=== PATIENT | male | born 1965 | race Caucasian/White ===

== ENCOUNTER 2020-03-27 14:31 | Emergency (ER) | payer OTHER, SELFPAY ==
--- NOTE | ~2020-03-27 | XR_ITS ---
EXAMINATION: XR chest 2V EXAM DATE: 03/27/2020 15:57 INDICATION: Shortness of breath, fever and fatigue. TECHNIQUE: Frontal and lateral projections of the chest obtained and reviewed. Comparison is made to prior examination from 09/14/2019. FINDINGS: The lungs are clear. There are no pleural effusions. The cardiomediastinal silhouette is within normal limits. There is no pneumothorax suspected. There are mild bony degenerative changes. There are cholecystectomy clips. IMPRESSION: No acute cardiopulmonary findings. Reviewed, dictated and finalized at location A.
--- NOTE | ~2020-03-27 | CT_ITS ---
EXAMINATION: CT abdomen pelvis w con EXAM DATE: 03/27/2020 17:32 INDICATION: Fever and abdominal pain. TECHNIQUE: Spiral CT of the abdomen and pelvis was performed following intravenous injection of 100 m L Omnipaque 350. Axial, coronal and sagittal images were reviewed. The dose-length product (DLP) fo r this examination was 1577.76 mGy-cm. The exposure was tailored according to patient size (auto mA exposure control), and iterative reconstruction (ASIR) was used as additional dose reduction techniqu e. 02/21/2017 FINDINGS: The liver, spleen, adrenal glands and pancreas are unremarkable. There are cholecystectomy clips. Portal and splenic veins are patent. There is punctate left nephrolithiasis. Kidneys enhance symmetrically. There is no hydronephrosis. The prostate is unremarkable. The bladder is unremark able. There is no retroperitoneal or pelvic lymphadenopathy. Small left inguinal fat-containing he rnia. The appendix is not positively visualized. There is no pericecal inflammatory change to suggest appe ndicitis. The stomach and small bowel are unremarkable. There is expected amount of colonic stool. No free intraperitoneal gas. The heart is normal in size. There are no pericardial or pleural e ffusions. There is 3 x 4 mm right middle lobe noncalcified granuloma unchanged. There are no osteob lastic or osteolytic lesions identified. IMPRESSION: 1. No acute intra-abdominal findings. 2. Punctate left nephrolithiasis. Reviewed, dictated and finalized at location A.
[2020-03-27 14:35] VITALS: BP 173/110; PULSE 93; RESP 20; TEMP 38.1; O2SAT 96
--- NOTE | 2020-03-27 14:56 | ECG_ITS ---
Measurements Intervals [place] Rate: 92 P: 14 [place]: 162 QRS: -15 QRSD: 87 T: 23 QT: 340 QTc: 421 Interpretive Statements SINUS RHYTHM INFERIOR INFARCT, AGE INDETERMINATE BORDERLINE T WAVE ABNORMALITY- LATERAL LEADS ABNORMAL ECG Electronically Signed On 03-28-2020 9:26:16 CDT by Michael Aguirre D.O.
[2020-03-27 15:36] LABS: Basophils Percent Auto 0.4 % (0.2-1.2); Eosinophils Absolute Auto 0.1 K/mm3 (0-0.3); Eosinophils Percent Auto 2.3 % (0-4.4); Hematocrit 42.6 % (42.0-52.0); Hemoglobin 14.8 g/dL (14.0-18.0); Immature Granulocyte Absolute 0.03 K/mm3 (0.00-0.031); Immature Granulocyte Percent A 0.6 % (0-0.5); Lymphocytes Absolute Auto 1.05 K/mm3 (0.9-3.2); Mean Corpuscular HGB Conc 34.7 g/dl (32-36); Mean Corpuscular Hemoglobin 28.3 pg (26-34); Mean Corpuscular Volume 81.5 fl (80-100); Mean Platelet Volume 8.7 fl (7.4-10.4); Monocytes Absolute Auto 0.6 K/mm3 (0.1-0.6); Monocytes Percent Auto 11.8 % (2.6-8.5); Neutrophils Absolute Auto 3.4 K/mm3 (1.3-6.7); Neutrophils Percent Auto 64.9 % (45.5-73.1); Platelet Count Result 224 k/mm3 (150-375); Red Blood Count 5.23 M/mm3 (4.6-6.20); Red Cell Distribution Width 13.1 % (11.5-14.5); White Blood Count 5.3 K/mm3 (4.5-10.0)
[2020-03-27 15:52] LABS: Blood Urea Nitrogen 13 mg/dL (9-20); Calcium 8.8 mg/dL (8.4-10.2); Carbon Dioxide 24 mmol/L (22-30); Chloride 102 mmol/L (98-107); Estimated CRCL calculation 132 ml/min; Estimated Glomerular Filt Rate > 60; Glucose 108 mg/dL (75-110); Potassium 3.6 mmol/L (3.4-5.0); Sodium 134 mmol/L (137-145)
[2020-03-27 16:36] VITALS: BP 145/95; PULSE 76; RESP 18; O2SAT 20
--- NOTE | 2020-03-27 17:12 | ED.SOB ---
HPI - SOB/Dyspnea General Chief Complaint: Shortness of Breath/Dyspnea Stated Complaint: Multiple complaints Time Seen by Provider: 03/27/20 16:44 History of Present Illness HPI Narrative: 54 yo male w/ h/o DM, HTN, barrete's esophagus presents to the ED with multiple complaints. For the past week he has been feeling fatigued and SOB. initially only with exertion now all the time. He also reports that he has been exhausted and has trouble staying awake throughout the day. Additionally c/o of abdominal pain and distention. Associated with mild nausea. He was noted to be febrile during triage. He is supected of having sleep apnea. He has not had testing yet due to COVID-19 Related Data Home Medications Medication Instructions Recorded Confirmed aspirin 81 mg tablet,delayed 81 mg PO DAILY 09/12/19 release scopolamine base 1 mg over 3 days 1 patch TRANSDERM Q3D PRN 09/12/19 transdermal patch Allergies Allergy/AdvReac Type Severity Reaction Status Date / Time mold Allergy Mild Verified 10/13/19 10:37 Cultivated Oat Pollen Allergy Intermediate Uncoded 10/13/19 10:37 Review of Systems Review of Systems: All systems reviewed & are unremarkable except as noted in HPI and below Constitutional: Constitutional: Reports fatigue, Reports fever(s) and Reports weakness ENT: Denies sore throat Cardiovascular: Cardiovascular: Denies chest pain Respiratory: Respiratory: Reports cough and Reports dyspnea Gastrointestinal: Gastrointestinal: Reports abdominal pain and Reports nausea Genitourinary: Genitourinary: Denies dysuria Neurologic: Denies dizziness and Denies numbness PMF Past Medical History Medical History ADHD Back pain Barretts esophagus Benign essential hypertension Chest pain Diabetes mellitus GERD (gastroesophageal reflux disease) History of Dixon's esophagus Medical non-compliance Mixed hyperlipidemia Noncompliance Severe obesity (BMI >= 40) Sleep apnea Type 2 diabetes mellitus with hyperglycemia Urinary frequency Viral syndrome Family History Family History Grandparent Cerebrovascular accident Father Family history of dementia Social History Social History Smoking status: Never smoker Alcohol intake: never Gender identity (if verbalized by the patient): Male Exam Const: General: healthy appearing, no acute distress and alert Nutritional Appearance: obese Orientation/consciousness: patient oriented x3 HENMT: Head: normal to inspection Resp: Effort & Inspection: normal respiratory effort Auscultation: clear to auscultation bilaterally Cardio: Rate: regular rate Rhythm: regular rhythm GI: Inspection: distended GI Palp: Yes Tenderness to palpation present (GI) (LLQ) and No Guarding due to palpation present (GI) Skin: General skin exam: normal color Neuro: General: patient oriented x3, moves all extremities, no focal motor deficits and CN's II-XI intact bilaterally Speech: normal speech Extrem: General: normal to inspection Course Vital Signs Vital signs: Vital Signs Temperature 38.1 C H 03/27/20 14:35 Pulse Rate 93 03/27/20 14:35 Respiratory Rate 20 03/27/20 14:35 Blood Pressure 173/110 H 03/27/20 14:35 Pulse Oximetry 96 03/27/20 14:35 Temperature 37.6 C 03/27/20 18:15 Pulse Rate 87 03/27/20 18:15 Respiratory Rate 18 03/27/20 18:15 Blood Pressure 168/109 H 03/27/20 18:15 Pulse Oximetry 94 03/27/20 18:15 MDM - SOB/Dyspnea MDM Narrative Medical decision making narrative: He has multiple complaints and it is difficult to tie them into one diagnosis. I suspect that he has diverticulitis and sleep apnea. Medical Records Attestation: I reviewed the patient's medical records. Lab Data Attestation: I reviewed the patient's lab results. Result d
[2020-03-27 17:38] VITALS: BP 138/78; PULSE 78; RESP 16; O2SAT 99
[2020-03-27 18:15] VITALS: BP 168/109; PULSE 87; RESP 18; TEMP 37.6; O2SAT 94
[2020-03-27 18:21] LABS: Add Urine Microscopic? NO; Appearance Urine Clear (Clear); Bilirubin Urine Negative (Negative); Blood Urine Negative (Negative); Color Urine Yellow (Yellow); Glucose Urine UA Negative (Negative); Ketones Urine Negative (Negative); Leukocyte Esterase Ur Negative LEU/UL (Negative); Nitrate Urine Negative (Negative); Protein Urine Negative (Negative); Specific Grav Ur 1.019 (1.001-1.035); Urobilinogen Urine Negative mg/dL (<2.0)
[2020-03-28 13:36] LABS: SARS-CoV-2 RNA PCR Positive
== END 2020-03-27 19:14 | disposition home or self-care (01) ==
PROVIDERS: Emergency Medicine; Emergency Provider Emergency Medicine; PCP Family Medicine
DX: U07.1 COVID-19 (principal); R53.83 Other fatigue; R50.9 Fever, unspecified; I10 Essential (primary) hypertension; K22.70 Barrett's esophagus without dysplasia; K21.9 Gastro-esophageal reflux disease without esophagitis; Z68.41 Body mass index [BMI] 40.0-44.9, adult; E78.2 Mixed hyperlipidemia; E66.01 Morbid (severe) obesity due to excess calories; E11.65 Type 2 diabetes mellitus with hyperglycemia; Z79.82 Long term (current) use of aspirin; Z79.84 Long term (current) use of oral hypoglycemic drugs
CPT/HCPCS: 36415; 71046; 74177; 80048; 81003; 85025; 87635; 93005; 99284; C9803; Q9967; U0003

== ENCOUNTER 2020-04-01 23:48 | Inpatient (IN) | payer OTHER, SELFPAY ==
--- NOTE | ~2020-04-01 | XR_ITS ---
EXAMINATION: XR chest 1V portable EXAM DATE: 04/02/2020 00:22 INDICATION: Shortness of air. TECHNIQUE: Portable AP frontal chest x-ray was obtained. Comparison is made to prior examination from 03/27/2020. FINDINGS: There is approximately 4 cm region of airspace in the right upper lobe, and approximately 3 cm ill-defined opacity in the left mid to lower lung zone. These are new compared to examination fro m 03/27/2020. Most likely bilateral acute infectious process, recommend considering acute lung injury f rom COVID 19. The lungs are otherwise clear. There are no pleural effusions. The cardiomediastinal silhouette is within normal limits. There is no pneumothorax suspected. The bones and soft tissues are unremarkab le. IMPRESSION: Development of acute bilateral airspace disease most likely acute infectious process. I discussed this case with Erick El MD at 04/02/2020 0:27 CDT. Reviewed, dictated and finalized at location G. IMPRESSION: Development of acute bilateral airspace disease most likely acute i nfectious process. I discussed this case with Erick El MD at 04/02/2020 0:27 CDT.
--- NOTE | ~2020-04-01 | XR_ITS ---
EXAMINATION: XR chest 1V portable INDICATION: Shortness of breath and cough TECHNIQUE: Portable AP chest at 1219 hours COMPARISON: 04/04/2020 FINDINGS: Airspace opacities of the right upper and left mid and lower lung zones persist with slight worsening. There is no pleural effusion or pneumothorax. The cardiomediastinal silhouette is normal. IMPRESSION: 1. Worsening bilateral airspace opacities, consistent with multifocal pneumonia. Reviewed, dictated and finalized at location A. IMPRESSION: 1. Worsening bilateral airspace opacities, consistent with multifocal pneumonia .
--- NOTE | ~2020-04-01 | XR_ITS ---
XR chest 1V portable 04/04/2020 14:07 Indication: Shortness of breath Procedure: AP portable chest Comparison: Comparison to multiple prior studies sequentially, with oldest reviewed study dated 11/20. Findings: Interval progression of patchy bilateral airspace disease, compatible with multifocal pneum onia. No pleural effusion or pneumothorax. Impression: 1: Interval progression of multifocal pneumonia compared with 04/02/2020. Reviewed, dictated and finalized at location A. Impression: 1: Interval progression of multifocal pneumonia compared with 04/02/2020.
--- NOTE | ~2020-04-01 | XR_ITS ---
EXAMINATION: XR chest 1V portable DATE: 04/08/2020 05:45 INDICATION: Shortness of breath. Cough. COVID-19 pneumonia. TECHNIQUE: A single frontal view of the chest was obtained. COMPARISON: Chest single view 04/06/2020, CT abdomen and pelvis 03/27/2020 FINDINGS: There are patchy airspace opacities in all lung zones bilaterally with a peripheral and low er lung predominance. No pleural effusion or pneumothorax. The heart size is normal. IMPRESSION: 1. Worsened diffuse lung disease, consistent with pneumonia. Reviewed, dictated and finalized at location A.
[2020-04-02] VITALS (23 sets, daily range): BP systolic 118–159; BP diastolic 43–100; PULSE 87–110; RESP 18–25; TEMP 36.7–38.9; O2SAT 92–98; BMI 39.9
--- NOTE | 2020-04-02 00:15 | ECG_ITS ---
Measurements Intervals [place] Rate: 103 P: 21 [place]: 149 QRS: -14 QRSD: 87 T: 49 QT: 328 QTc: 430 Interpretive Statements SINUS TACHYCARDIA INFERIOR INFARCT, AGE INDETERMINATE ABNORMAL ECG Electronically Signed On 04-02-2020 7:08:30 CDT by Michael Aguirre D.O.
[2020-04-02] MEDS: SODIUM CHLORIDE 0.9% IV 1,000 ML 999 ML IV CONT (00:45)
[2020-04-02 01:00] LABS: Basophils Percent Auto 0.3 % (0.2-1.2); Eosinophils Percent Auto 0.3 % (0-4.4); Hematocrit 45.2 % (42.0-52.0); Hemoglobin 15.9 g/dL (14.0-18.0); Immature Granulocyte Absolute 0.05 K/mm3 (0.00-0.031); Immature Granulocyte Percent A 0.8 % (0-0.5); Lymphocytes Absolute Auto 1.47 K/mm3 (0.9-3.2); Lymphocytes Percent Auto 24.1 % (18.3-44.2); Mean Corpuscular HGB Conc 35.2 g/dl (32-36); Mean Corpuscular Hemoglobin 28.5 pg (26-34); Mean Platelet Volume 9.1 fl (7.4-10.4); Monocytes Absolute Auto 0.4 K/mm3 (0.1-0.6); Monocytes Percent Auto 6.7 % (2.6-8.5); Neutrophils Absolute Auto 4.1 K/mm3 (1.3-6.7); Neutrophils Percent Auto 67.8 % (45.5-73.1); Platelet Count Result 229 k/mm3 (150-375); Red Blood Count 5.58 M/mm3 (4.6-6.20); Red Cell Distribution Width 12.8 % (11.5-14.5); White Blood Count 6.1 K/mm3 (4.5-10.0)
[2020-04-02 01:01] LABS: Alanine Aminotransferase 50 U/L (4-50); Albumin Level 4.1 g/dL (3.5-5.1); Alkaline Phosphatase 92 U/L (38-126); Aspartate Amino Transferase 40 U/L (17-59); Bilirubin,Total 0.5 mg/dL (0.2-1.3); Blood Urea Nitrogen 15 mg/dL (9-20); Calcium 8.6 mg/dL (8.4-10.2); Carbon Dioxide 20 mmol/L (22-30); Chloride 98 mmol/L (98-107); Estimated Glomerular Filt Rate > 60; Glucose 285 mg/dL (75-110); Lactic Acid Reflex 2.7 mmol/L (0.7-2.1); Potassium 4.1 mmol/L (3.4-5.0); Sodium 130 mmol/L (137-145)
[2020-04-02 01:07] LABS: D Dimer 0.47 ug/mL (<0.48)
[2020-04-02] MEDS: ALBUTEROL SULFATE NEB 2.5 MG/0.5 ML INH 5 MG INHALATION (01:59)
[2020-04-02] MEDS: IPRATROPIUM BR 0.02% INH SOLN 0.5 MG/2.5 ML VIAL INHALATION (01:59)
--- NOTE | 2020-04-02 02:37 | ED.FEVER ---
HPI - Fever General Chief Complaint: Fever Stated Complaint: COVID 19 S/S Time Seen by Provider: 04/01/20 23:55 History of Present Illness HPI Narrative: Patient is a 54-year-old male who was referred here by his PCP. Patient was diagnosed with COVID-19 on 03/27/2020. Since then he developed increased shortness of breath with persistent fever. Reports he is feeling very anxious and since his shortness of breath is increasing he is concerned that he may . He is also concerned that his circulation is failing as his extremities have been cooler than typical. No chest pain or chest pressure. Unknown how he was exposed reports he is not taking social distancing seriously. Patient just started azithromycin as well as hydroxychloroquine today. Related Data Allergies Allergy/AdvReac Type Severity Reaction Status Date / Time mold Allergy Mild Verified 10/13/19 10:37 Cultivated Oat Pollen Allergy Intermediate Uncoded 10/13/19 10:37 Review of Systems Review of Systems: All systems reviewed & are unremarkable except as noted in HPI and below Constitutional: Constitutional: Denies chills, Reports fatigue and Reports fever(s) ENT: Denies nasal congestion and Denies sore throat Cardiovascular: Cardiovascular: Denies chest pain and Denies radiating jaw, neck or arm pain Respiratory: Respiratory: Reports cough, Reports dyspnea and Denies wheezing Gastrointestinal: Gastrointestinal: Denies abdominal pain, Denies nausea and Denies vomiting PMFSH Past Medical History Medical History (Updated 04/02/20 @ 07:06 by Erick El MD) ADHD Back pain Barretts esophagus Benign essential hypertension Chest pain COVID-19 virus detected Diabetes mellitus GERD (gastroesophageal reflux disease) History of Dixon's esophagus Medical non-compliance Mixed hyperlipidemia Noncompliance Severe obesity (BMI >= 40) Sleep apnea Type 2 diabetes mellitus with hyperglycemia Urinary frequency Viral syndrome Surgical History Surgical History (Updated 04/02/20 @ 07:05 by Erick El MD) History of appendectomy Social History Social History Smoking status: Never smoker Alcohol intake: never Substance use: never Gender identity (if verbalized by the patient): Male Spiritual care concerns: No Exam Narrative: Exam Narrative: GENERAL: Ill-appearing, well-nourished, and in no acute distress. HEAD: Normocephalic, atraumatic. ENT: Mucous membranes moist. NECK: Supple. CHEST: Clear to auscultation. No respiratory distress. HEART: Tachycardic and regular. Normal peripheral pulses. ABDOMEN: Soft, nontender, nondistended. EXTREMITIES: Normal range of motion. No edema. SKIN: Warm, dry, no rash. NEURO: Alert and oriented x3. 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 Hydrated. Received breathing treatments without improvement dyspnea. Oxygen saturation dipping down to 90% on room air with good [place]. Concern patient's lung disease is worsening and necessitates observation within the hospital. Vital Signs Vital signs: Vital Signs Temperature 100.3 F H 04/02/20 00:13 Pulse Rate 110 H 04/02/20 00:13 Respiratory Rate 22 H 04/02/20 00:13 Blood Pressure 154/98 H 04/02/20 00:13 Pulse Oximetry 98 04/02/20 00:13 Temperature 98.8 F 04/02/20 06:00 Pulse Rate 87 04/02/20 06:00 Respiratory Rate 20 04/02/20 06:00 Blood Pressure 147/76 H 04/02/20 06:00 Pulse Oximetry 92 04/02/20 06:00 MDM - Fever Lab Data Result diagrams: 04/02/20 00:33 04/02/20 00:33 Labs: Lab Results 04/02/20 04/02/20 04/02/20 Range/Units 00:33 00:33 00:33 WBC 6.1 (4.5-10.0) K/mm3 RBC 5.58 (4.6-6.20) M/mm3 Hgb 15.9 (14.0-18.0) g/dL Hct 45.2 (42.0-52.0) % MCV 81.0 (80-100) fl MCH 28.5 (26-34) pg MCHC 35.2 (32-36) g/dl RDW 12.8 (11.5-14.5) % P
[2020-04-02 03:36] LABS: Reflex Lactic Acid Yes or No Add Lactic
--- NOTE | 2020-04-02 03:50 | ADMGEN ---
This patient, Rich Reid, was admitted to [facility] Surg Room 329-01. Patient/family oriented to hospital policies and general routines including ID bracelet, bed and alarms, visiting hours, pain management, procedures, bathroom and other care routines, personal items, smoking policy, room service/diet, and visiting hours. Valuables list has been completed. Information on how to activate the Rapid Response Team has been discussed. Patient/Family are encouraged to report perceived risks to care and to ask questions if they do not understand what they are told or what they should do.
[2020-04-02 04:28] LABS: Lactic Acid 2.1 mmol/L (0.7-2.1)
[2020-04-02 08:46] LABS: Glucose Point of Care 163 (65-105)
--- NOTE | 2020-04-02 09:40 | PM.IMHP ---
H&P: HPI History of Present Illness Chief complaint: covid, soa Narrative: Date of admission: 04/02/2020 Date of service: 04/02/2020 Rich Reid is a 54 year old male with a past medical history significant for type 2 diabetes, Dixon's esophagus, obesity, and hypertension who presented to the emergency department on 04/02/2020 complaints shortness of breath, fatigue, and ?poor circulation in his hands and feet. The numbness and tingling in his hands and feet were extremely distressing to him and he was concerned that he was going to , therefore he came to the emergency department. He previously had been seen in the emergency department on 03/27/2020 and tested positive for COVID-19. On 03/28/2020 he obtained a repeat COVID test at [facility] because he was concerned that the initial test may have been a false positive. Both tests were positive. He reported that he had not been taking social distancing or hygiene precautions seriously as he thought the media was dramatizing COVID-19. Upon testing positive, he did begin self-quarantine at home with his and his daughter who has separate living quarters upstairs. Yesterday, his symptoms began to become more bothersome. In addition to his shortness of breath and fatigue, he noted a dry cough and fever with a T-max of 102.0?. He also complained of nausea and abdominal pain but denied vomiting. He believes that his nausea may be related to dietary changes, as he recently began drinking large amounts of Cheko seeds for the past 4 days in attempt to curb his appetite. Given his increased shortness of breath, he called his primary care doctor yesterday who prescribed hydroxychloroquine and azithromycin. He began those medications yesterday. Today, he feels that his breathing has improved somewhat. He is able to lie flat as well as ambulate around the room without increased shortness of breath. He still feels anxious regarding his symptoms. He has been febrile with a T-max of 101.5? this morning. He complains of generalized body aches. He denies chills. His chest x-ray demonstrated acute bilateral airspace disease with new infiltrates not previously noted on prior CXR on 03/27/20. Review of Systems Review of Systems: Narrative: A 12 point review of systems was reviewed with pertinent positives and negatives as per HPI. He denies dizziness, lightheadedness, palpitations, headaches, dysuria, urgency, or frequency. His last bowel movement was yesterday. He reports his bowel movements are regular, soft, and formed. His appetite has been good. He endorses snoring at night and feeling tired during the day. He has been scheduled to obtain a sleep study, however has been unable to do so as of now. [facility] Past Medical History Medical History (Updated 04/02/20 @ 10:18 by Darlene Juarez PA-C) ADHD Back pain Barretts esophagus Benign essential hypertension Chest pain COVID-19 virus detected GERD (gastroesophageal reflux disease) Medical non-compliance Mixed hyperlipidemia Severe obesity (BMI >= 40) Sleep apnea Type 2 diabetes mellitus with hyperglycemia Urinary frequency Surgical History Surgical History (Updated 04/02/20 @ 09:54 by Darlene Juarez PA-C) History of appendectomy History of cholecystectomy History of right knee surgery History of shoulder surgery Bilateral Family History Family History (Updated 04/02/20 @ 09:54 by Darlene Juarez PA-C) Grandparent Cerebrovascular accident Father Family history of dementia Acute myocardial infarction Mother No problems noted. Social History Social History (Updated 04/02/20 @ 09:56 by Darlene Juarez PA-C) Social History: Mr. Reid lives at home with his and his 2 adult children. 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 He would like to be a full code and designates his Melonie ([phone]) as his surrogate decision maker. Smoking status: Never smoker Alcohol intake: former Alcoho
[2020-04-02 10:11] LABS: CRP 5.7 mg/dL (<1.0)
[2020-04-02 10:44] LABS: Creatine Kinase 129 U/L (55-170); Lactate Dehydrogenase 477 U/L (313-618)
[2020-04-02] MEDS: lisinopriL 20 MG TABLET 40 MG PO (11:12)
[2020-04-02] MEDS: ENOXAPARIN 40 MG/0.4 ML SYRINGE SUB-Q (11:13)
[2020-04-02] MEDS: PANTOPRAZOLE 40 MG TABLET PO ×2 (11:14→21:51)
[2020-04-02] MEDS: ACETAMINOPHEN 325 MG TABLET 650 MG PO ×3 (11:14→21:51)
[2020-04-02] MEDS: ALBUTEROL SULFATE (*SP) INHALER 2 PUFF INHALATION ×3 (11:46→19:40)
[2020-04-02 12:41] LABS: Glucose Point of Care 255 (65-105)
[2020-04-02] MEDS: INSULIN ASPART (*BKC) 100 UNITS/ML SUB-Q (13:38)
[2020-04-02] MEDS: metFORMIN HCL XR 500 MG TAB.SR.24H 1000 MG PO (16:35)
[2020-04-02 17:49] LABS: Glucose Point of Care 194 (65-105)
[2020-04-02 22:44] LABS: Glucose Point of Care 246 (65-105)
[2020-04-03] VITALS (16 sets, daily range): BP systolic 126–183; BP diastolic 58–98; PULSE 77–107; RESP 16–24; TEMP 37.2–39; O2SAT 90–99; BMI 39.9
[2020-04-03] MEDS: ACETAMINOPHEN 325 MG TABLET 650 MG PO ×2 (05:19→09:27)
[2020-04-03 06:41] LABS: Basophils Percent Auto 0.4 % (0.2-1.2); Eosinophils Percent Auto 0.4 % (0-4.4); Hematocrit 42.9 % (42.0-52.0); Hemoglobin 14.8 g/dL (14.0-18.0); Immature Granulocyte Absolute 0.03 K/mm3 (0.00-0.031); Immature Granulocyte Percent A 0.5 % (0-0.5); Lymphocytes Absolute Auto 1.31 K/mm3 (0.9-3.2); Lymphocytes Percent Auto 23.1 % (18.3-44.2); Mean Corpuscular HGB Conc 34.5 g/dl (32-36); Mean Corpuscular Hemoglobin 28.1 pg (26-34); Mean Corpuscular Volume 81.4 fl (80-100); Mean Platelet Volume 8.8 fl (7.4-10.4); Monocytes Absolute Auto 0.3 K/mm3 (0.1-0.6); Monocytes Percent Auto 5.3 % (2.6-8.5); Neutrophils Percent Auto 70.3 % (45.5-73.1); Platelet Count Result 211 k/mm3 (150-375); Red Blood Count 5.27 M/mm3 (4.6-6.20); White Blood Count 5.7 K/mm3 (4.5-10.0)
[2020-04-03 06:56] LABS: Lactic Acid 1.2 mmol/L (0.7-2.1)
[2020-04-03 07:00] LABS: Alanine Aminotransferase 46 U/L (4-50); Albumin Level 3.8 g/dL (3.5-5.1); Alkaline Phosphatase 87 U/L (38-126); Aspartate Amino Transferase 36 U/L (17-59); Bilirubin,Total 0.6 mg/dL (0.2-1.3); Blood Urea Nitrogen 12 mg/dL (9-20); CRP 6.8 mg/dL (<1.0); Calcium 8.5 mg/dL (8.4-10.2); Carbon Dioxide 24 mmol/L (22-30); Chloride 99 mmol/L (98-107); Estimated CRCL calculation 129 ml/min; Estimated Glomerular Filt Rate > 60; Glucose 191 mg/dL (75-110); Potassium 4.1 mmol/L (3.4-5.0); Sodium 129 mmol/L (137-145)
[2020-04-03 07:22] LABS: Hemoglobin A1C 9.7 % (<5.7)
[2020-04-03 08:37] LABS: Glucose Point of Care 160 (65-105)
[2020-04-03] MEDS: ALBUTEROL SULFATE (*SP) INHALER 2 PUFF INHALATION ×4 (09:10→20:51)
--- NOTE | 2020-04-03 09:13 | P.PNIM_ITS ---
Progress Note: A&P Assessment and Plan (1) COVID-19: Code(s): U07.1 - COVID-19 Status: Acute Assessment and Plan: Patient tested positive for COVID-19 on 03/27/2020. He was initiated on azithromycin and hydroxychloroquine on 04/01/2020 by PCP. His chest x-ray reveals bilateral airspace disease consistent with infectious process with new infiltrates compared to CXR on 03/27/20. He was febrile overnight with T max 102.1 that has improved with tylenol. He is maintaining adequate oxygenation on room air. * Continue isolation precautions * Continue ceftriaxone and azithromycin * Hydroxychloroquine discontinued on 04/02/20 * Continue supplemental O2 as needed with goal saturation >92% * Continue supportive care with prn albuterol inhaler, prn acetaminophen for fever, and guaifenisin * Trend CRP and acute phase reactants (2) Pneumonia: Code(s): J18.9 - Pneumonia, unspecified organism Status: Acute Assessment and Plan: CXR has new infiltrates compared to prior X-ray on 03/27/20. This may be secondary bacterial infection following viral respiratory disease. * Continue ceftriaxone and azithromycin * Sputum culture was not performed as sample was unacceptable for culture. Will attempt collection again. * Blood cultures are pending * Urinary pneumococcal and legionella antigens are pending * Supportive care as above (3) Sepsis: Code(s): A41.9 - Sepsis, unspecified organism Status: Acute Assessment and Plan: Patient meets criteria for sepsis based on fever and tachycardia with suspected source of infection being pulmonary infection, possibly viral due to covid but may be secondary bacterial infection. No leukocytosis. Lactic was initially elevated at 2.7 but is now WNL. 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 Updated hemoglobin A1c is 9.7. His metformin was recently increased by PCP. His blood sugars are somewhat elevated. * Continue Accu-Cheks ACHS, high dose sliding scale, and hypoglycemia protocol * Will add 20 U Lantus HS * Continue metformin * Patient requests evaluation from engineering document control clerk and CDE, which will be via phone given he is Covid positive. (5) Benign essential hypertension: Code(s): I10 - Essential (primary) hypertension Status: Acute Assessment and Plan: Initial readings were elevated, but have shown improvement. Blood pressure is evaluated today and elevated at 136/98 prior to administration of antihypertensive. * Continue lisinopril * Continue to monitor blood pressure closely Subjective Date/time seen: 04/03/20 09:13 Interval history: Date of service: 04/03/2020 He reports he is feeling about the same today. He complains of nonproductive cough. He denies shortness of breath or dyspnea on exertion. He endorses subjective fever and chills, occasionally with diaphoresis. He denies chest p ain. He had a loose stool yesterday evening. He is urinating without difficulty and denies dysuria or hematuria. He denies dizziness or lightheadedness. He denies anxiety. His appetite has been good. He requests to see the dietitian
--- NOTE | 2020-04-03 09:13 | PM.IMPN ---
Progress Note: A&P Assessment and Plan (1) COVID-19: Code(s): U07.1 - COVID-19 Status: Acute Assessment and Plan: Patient tested positive for COVID-19 on 03/27/2020. He was initiated on azithromycin and hydroxychloroquine on 04/01/2020 by PCP. His chest x-ray reveals bilateral airspace disease consistent with infectious process with new infiltrates compared to CXR on 03/27/20. He was febrile overnight with T max 102.1 that has improved with tylenol. He is maintaining adequate oxygenation on room air. Continue isolation precautions Continue ceftriaxone and azithromycin Hydroxychloroquine discontinued on 04/02/20 Continue supplemental O2 as needed with goal saturation >92% Continue supportive care with prn albuterol inhaler, prn acetaminophen for fever, and guaifenisin Trend CRP and acute phase reactants (2) Pneumonia: Code(s): J18.9 - Pneumonia, unspecified organism Status: Acute Assessment and Plan: CXR has new infiltrates compared to prior X-ray on 03/27/20. This may be secondary bacterial infection following viral respiratory disease. Continue ceftriaxone and azithromycin Sputum culture was not performed as sample was unacceptable for culture. Will attempt collection again. Blood cultures are pending Urinary pneumococcal and legionella antigens are pending Supportive care as above (3) Sepsis: Code(s): A41.9 - Sepsis, unspecified organism Status: Acute Assessment and Plan: Patient meets criteria for sepsis based on fever and tachycardia with suspected source of infection being pulmonary infection, possibly viral due to covid but may be secondary bacterial infection. No leukocytosis. Lactic was initially elevated at 2.7 but is now WNL. Continue to monitor vitals and labs closely Blood cultures are pending (4) Type 2 diabetes mellitus with hyperglycemia: Qualifiers: Diabetes mellitus manager intermediate insulin use: without manager intermediate use Qualified Code(s): E11.65 - Type 2 diabetes mellitus with hyperglycemia Code(s): E11.65 - Type 2 diabetes mellitus with hyperglycemia Status: Acute Assessment and Plan: Patient reports noncompliance with medication as well as poor diet and lifestyle choices. Updated hemoglobin A1c is 9.7. His metformin was recently increased by PCP. His blood sugars are somewhat elevated. Continue Accu-Cheks ACHS, high dose sliding scale, and hypoglycemia protocol Will add 20 U Lantus HS Continue metformin Patient requests evaluation from paper bag machine operator and CDE, which will be via phone given he is Covid positive. (5) Benign essential hypertension: Code(s): I10 - Essential (primary) hypertension Status: Acute Assessment and Plan: Initial readings were elevated, but have shown improvement. Blood pressure is evaluated today and elevated at 136/98 prior to administration of antihypertensive. Continue lisinopril Continue to monitor blood pressure closely Subjective Date/time seen: 04/03/20 09:13 Interval history: Date of service: 04/03/2020 He reports he is feeling about the same today. He complains of nonproductive cough. He denies shortness of breath or dyspnea on exertion. He endorses subjective fever and chills, occasionally with diaphoresis. He denies chest pain. He had a loose stool yesterday evening. He is urinating without difficulty and denies dysuria or hematuria. He denies dizziness or lightheadedness. He denies anxiety. His appetite has been good. He requests to see the dietitian and director of community education. He slept well last night. He requests I call his to update her on his condition. Review of Systems Review of Systems: Narrative: A 12 point review of systems was reviewed with pertinent positives and negatives per HPI. Exam Narrative: Exam Narrative: Mr. Reid is examined alone today. He is an obese 54-year-old male who is lying supine in bed
[2020-04-03] MEDS: lisinopriL 20 MG TABLET 40 MG PO (09:24)
[2020-04-03] MEDS: metFORMIN HCL XR 500 MG TAB.SR.24H 1000 MG PO ×2 (09:24→16:39)
[2020-04-03] MEDS: PANTOPRAZOLE 40 MG TABLET PO ×2 (09:24→21:14)
[2020-04-03] MEDS: ENOXAPARIN 40 MG/0.4 ML SYRINGE SUB-Q (09:25)
--- NOTE | 2020-04-03 12:23 | PCDIET ---
Dietitian Consult for weight loss/Diabetic Diet. See Nutritional Teaching. Thank you for the consult.
[2020-04-03 12:53] LABS: Glucose Point of Care 265 (65-105)
[2020-04-03] MEDS: INSULIN ASPART (*BKC) 100 UNITS/ML SUB-Q (12:59)
--- NOTE | 2020-04-03 13:09 | PC.NURSE ---
[place]alia, agricultural extension educator, asked me to take material to 329. I did. Later, I asked the patient if he had a chance to read any of the book. He state, No, I'm not going to do that. I'm too lazy for that. I encouraged him to read it as it would help him better manage all of his diseases.
[2020-04-03 17:07] LABS: Glucose Point of Care 168 (65-105)
[2020-04-03] MEDS: INSULIN GLARGINE (*BKC) 100 UNITS/ML 20 UNITS SUB-Q (21:21)
[2020-04-04] VITALS (14 sets, daily range): BP systolic 124–171; BP diastolic 75–90; PULSE 84–109; RESP 20–22; TEMP 37.1–39.3; O2SAT 88–99
[2020-04-04 05:24] LABS: Glucose Point of Care 203 (65-105)
[2020-04-04] MEDS: GUAIFENESIN/DEXTROMETHORPHAN 10 ML UDC 5 ML PO (05:24)
[2020-04-04 06:10] LABS: Basophils Percent Auto 0.2 % (0.2-1.2); Eosinophils Percent Auto 0.2 % (0-4.4); Hematocrit 41.2 % (42.0-52.0); Hemoglobin 14.2 g/dL (14.0-18.0); Immature Granulocyte Absolute 0.02 K/mm3 (0.00-0.031); Immature Granulocyte Percent A 0.4 % (0-0.5); Lymphocytes Absolute Auto 0.98 K/mm3 (0.9-3.2); Lymphocytes Percent Auto 18.7 % (18.3-44.2); Mean Corpuscular HGB Conc 34.5 g/dl (32-36); Mean Corpuscular Hemoglobin 28.2 pg (26-34); Mean Corpuscular Volume 81.7 fl (80-100); Mean Platelet Volume 8.8 fl (7.4-10.4); Monocytes Absolute Auto 0.3 K/mm3 (0.1-0.6); Neutrophils Percent Auto 75.5 % (45.5-73.1); Platelet Count Result 216 k/mm3 (150-375); Red Blood Count 5.04 M/mm3 (4.6-6.20); Red Cell Distribution Width 12.8 % (11.5-14.5); White Blood Count 5.2 K/mm3 (4.5-10.0)
[2020-04-04 06:41] LABS: Alanine Aminotransferase 39 U/L (4-50); Albumin Level 3.7 g/dL (3.5-5.1); Alkaline Phosphatase 78 U/L (38-126); Aspartate Amino Transferase 37 U/L (17-59); Bilirubin,Total 0.6 mg/dL (0.2-1.3); Blood Urea Nitrogen 12 mg/dL (9-20); Calcium 8.4 mg/dL (8.4-10.2); Carbon Dioxide 23 mmol/L (22-30); Chloride 98 mmol/L (98-107); Creatine Kinase 149 U/L (55-170); Estimated CRCL calculation 129 ml/min; Estimated Glomerular Filt Rate > 60; Glucose 172 mg/dL (75-110); Lactate Dehydrogenase 623 U/L (313-618); Potassium 4.1 mmol/L (3.4-5.0); Sodium 129 mmol/L (137-145)
[2020-04-04] MEDS: ONDANSETRON INJ 4 MG/2 ML VIAL IV PUSH (07:03)
[2020-04-04 07:41] LABS: CRP 14.7 mg/dL (<1.0)
[2020-04-04] MEDS: ALBUTEROL SULFATE (*SP) INHALER 2 PUFF INHALATION ×4 (08:22→20:25)
[2020-04-04] MEDS: AMLODIPINE BESYLATE 5 MG TABLET PO (08:37)
[2020-04-04] MEDS: ENOXAPARIN 40 MG/0.4 ML SYRINGE SUB-Q (08:37)
[2020-04-04] MEDS: lisinopriL 20 MG TABLET 40 MG PO (08:38)
[2020-04-04] MEDS: metFORMIN HCL XR 500 MG TAB.SR.24H 1000 MG PO ×2 (08:38→18:31)
[2020-04-04] MEDS: PANTOPRAZOLE 40 MG TABLET PO ×2 (08:41→21:30)
[2020-04-04 08:46] LABS: Glucose Point of Care 159 (65-105)
--- NOTE | 2020-04-04 09:30 | P.PNIM_ITS ---
Progress Note: A&P Assessment and Plan (1) COVID-19: Code(s): U07.1 - COVID-19 Status: Acute Assessment and Plan: Patient tested positive for COVID-19 on 03/27/2020. He was initiated on azithromycin and hydroxychloroquine on 04/01/2020 by PCP. His chest x-ray reveals bilateral airspace disease consistent with infectious process with new infiltrates compared to CXR on 03/27/20. He has been febrile, most recently with fevers overnight with T-max 102.2?. He has been fever free this morning. He had an episode of shortness of breath this morning in which he was placed on 2 L O2. Oxygen saturation now stable. * Continue isolation precautions * Repeat CXR * Continue ceftriaxone and azithromycin * Hydroxychloroquine discontinued on 04/02/20. * Continue supplemental O2 as needed with goal saturation >92%. Wean to goal. * Continue supportive care with prn albuterol inhaler, prn acetaminophen for fever, and guaifenisin. Add Cornet device. * Trend CRP and acute phase reactants (2) Pneumonia: Code(s): J18.9 - Pneumonia, unspecified organism Status: Acute Assessment and Plan: CXR has new infiltrates compared to prior X-ray on 03/27/20. This may be secondary bacterial infection following viral respiratory disease. * Continue ceftriaxone and azithromycin * Sputum culture was not performed as sample was unacceptable for culture. Will attempt collection again. * Preliminary blood cultures reveal NGTD. Await final cultures * Urinary pneumococcal and legionella antigens are pending * Supportive care as above (3) Sepsis: Code(s): A41.9 - Sepsis, unspecified organism Status: Acute Assessment and Plan: Patient meets criteria for sepsis based on fever and tachycardia with suspected source of infection being pulmonary infection, possibly viral due to covid but may be secondary bacterial infection. No leukocytosis. Lactic was initially elevated at 2.7 but is now WNL. * Continue to monitor vitals and labs closely * Blood cultures with NGTD. Await final (4) Type 2 diabetes mellitus with hyperglycemia: Qualifiers: Diabetes mellitus care home insulin use: without field service supervisor use Qualified Code(s): E11.65 - Type 2 diabetes mellitus with hyperglycemia Code(s): E11.65 - Type 2 diabetes mellitus with hyperglycemia Status: Acute Assessment and Plan: Patient reports noncompliance with medication as well as poor diet and lifestyle choices. Updated hemoglobin A1c is 9.7. His metformin was recently increased by PCP. Blood sugars have ranged from approximately 150-250. Blood sugar was reviewed today and is stable at 159. * Continue Accu-Cheks ACHS, high dose sliding scale, and hypoglycemia protocol * Continue metformin and Lantus * Patient requests evaluation from tax examining technician and CDE, which will be via phone given he is Covid positive. He may benefit from outpatient Diabetes Education. (5) Benign essential hypertension: Code(s): I10 - Essential (primary) hypertension Status: Acute Assessment and Plan: Initial readings were elevated, but have shown improvement. Blood pressures were elevated yesterday and today blood pressure is 171/84. * Continue lisinopril * Will add amlodipine to achieve better blood pressure control. * Continue to monitor blood pressure closely. * Will consider addition of p.r.n. hydralazine if blood pressures remain uncontrolled. (6) Anxiety: Code(s): F41.9 - Anxiety disorder, unspecified Status: Acute Assessment and Plan: Patient repo
--- NOTE | 2020-04-04 09:30 | PM.IMPN ---
Progress Note: A&P Assessment and Plan (1) COVID-19: Code(s): U07.1 - COVID-19 Status: Acute Assessment and Plan: Patient tested positive for COVID-19 on 03/27/2020. He was initiated on azithromycin and hydroxychloroquine on 04/01/2020 by PCP. His chest x-ray reveals bilateral airspace disease consistent with infectious process with new infiltrates compared to CXR on 03/27/20. He has been febrile, most recently with fevers overnight with T-max 102.2?. He has been fever free this morning. He had an episode of shortness of breath this morning in which he was placed on 2 L O2. Oxygen saturation now stable. Continue isolation precautions Repeat CXR Continue ceftriaxone and azithromycin Hydroxychloroquine discontinued on 04/02/20. Continue supplemental O2 as needed with goal saturation >92%. Wean to goal. Continue supportive care with prn albuterol inhaler, prn acetaminophen for fever, and guaifenisin. Add Cornet device. Trend CRP and acute phase reactants (2) Pneumonia: Code(s): J18.9 - Pneumonia, unspecified organism Status: Acute Assessment and Plan: CXR has new infiltrates compared to prior X-ray on 03/27/20. This may be secondary bacterial infection following viral respiratory disease. Continue ceftriaxone and azithromycin Sputum culture was not performed as sample was unacceptable for culture. Will attempt collection again. Preliminary blood cultures reveal NGTD. Await final cultures Urinary pneumococcal and legionella antigens are pending Supportive care as above (3) Sepsis: Code(s): A41.9 - Sepsis, unspecified organism Status: Acute Assessment and Plan: Patient meets criteria for sepsis based on fever and tachycardia with suspected source of infection being pulmonary infection, possibly viral due to covid but may be secondary bacterial infection. No leukocytosis. Lactic was initially elevated at 2.7 but is now WNL. Continue to monitor vitals and labs closely Blood cultures with NGTD. Await final (4) Type 2 diabetes mellitus with hyperglycemia: Qualifiers: Diabetes mellitus retirement insulin use: without supervisor intermediates use Qualified Code(s): E11.65 - Type 2 diabetes mellitus with hyperglycemia Code(s): E11.65 - Type 2 diabetes mellitus with hyperglycemia Status: Acute Assessment and Plan: Patient reports noncompliance with medication as well as poor diet and lifestyle choices. Updated hemoglobin A1c is 9.7. His metformin was recently increased by PCP. Blood sugars have ranged from approximately 150-250. Blood sugar was reviewed today and is stable at 159. Continue Accu-Cheks ACHS, high dose sliding scale, and hypoglycemia protocol Continue metformin and Lantus Patient requests evaluation from lining finisher and CDE, which will be via phone given he is Covid positive. He may benefit from outpatient Diabetes Education. (5) Benign essential hypertension: Code(s): I10 - Essential (primary) hypertension Status: Acute Assessment and Plan: Initial readings were elevated, but have shown improvement. Blood pressures were elevated yesterday and today blood pressure is 171/84. Continue lisinopril Will add amlodipine to achieve better blood pressure control. Continue to monitor blood pressure closely. Will consider addition of p.r.n. hydralazine if blood pressures remain uncontrolled. (6) Anxiety: Code(s): F41.9 - Anxiety disorder, unspecified Status: Acute Assessment and Plan: Patient reports he is anxious about being in the hospital and being away from his family. He is fearful that he is going to . Begin prn ativan Subjective Date/time seen: 04/04/20 09:30 Interval history: Date of service: 04/04/2020 He is feeling very concerned today. He stated several times that he thinks that he is going to . He had an episode this morning in which he became short
[2020-04-04 12:35] LABS: Glucose Point of Care 215 (65-105)
[2020-04-04] MEDS: INSULIN ASPART (*BKC) 100 UNITS/ML SUB-Q (12:36)
[2020-04-04 13:43] LABS: Pneumococcal Antigen Urine Not Detected (Not Detected)
[2020-04-04] MEDS: ACETAMINOPHEN 325 MG TABLET 650 MG PO ×2 (15:36→20:05)
[2020-04-04 18:31] LABS: Glucose Point of Care 133 (65-105)
[2020-04-04] MEDS: INSULIN GLARGINE (*BKC) 100 UNITS/ML 20 UNITS SUB-Q (20:05)
[2020-04-04 22:53] LABS: Glucose Point of Care 147 (65-105)
[2020-04-05] VITALS (12 sets, daily range): BP systolic 121–147; BP diastolic 64–78; PULSE 64–100; RESP 18–22; TEMP 37.2–38.1; O2SAT 92–97
[2020-04-05] MEDS: ACETAMINOPHEN 325 MG TABLET 650 MG PO ×3 (03:39→18:00)
[2020-04-05] MEDS: ALBUTEROL SULFATE (*SP) INHALER 2 PUFF INHALATION ×4 (09:11→20:29)
[2020-04-05] MEDS: PANTOPRAZOLE 40 MG TABLET PO ×2 (09:28→20:17)
[2020-04-05] MEDS: AMLODIPINE BESYLATE 5 MG TABLET PO (09:28)
[2020-04-05] MEDS: metFORMIN HCL XR 500 MG TAB.SR.24H 1000 MG PO ×2 (09:28→17:59)
[2020-04-05] MEDS: lisinopriL 20 MG TABLET 40 MG PO (09:28)
[2020-04-05] MEDS: ENOXAPARIN 40 MG/0.4 ML SYRINGE SUB-Q (09:29)
--- NOTE | 2020-04-05 10:08 | P.PNIM_ITS ---
Progress Note: A&P Assessment and Plan (1) COVID-19: Code(s): U07.1 - COVID-19 Status: Acute Assessment and Plan: Patient tested positive for COVID-19 on 03/27/2020. He was initiated on azithromycin and hydroxychloroquine on 04/01/2020 by PCP. His chest x-ray reveals bilateral airspace disease consistent with infectious process with new infiltrates compared to CXR on 03/27/20. He has been febrile with Tmax 102.8. He is maintaining adequate oxygen saturation on 2L O2. * Continue isolation precautions * Continue ceftriaxone and azithromycin * Hydroxychloroquine discontinued on 04/02/20. Patient is firmly requesting hydroxychloroquine. I had a brief discussion with patients PCP via phone today who also firmly recommends hydroxychloroquine. However, given patients QTc of 430 and potential risk for cardiac adverse event, I believe risks outweigh benefits at this time. * Continue supplemental O2 as needed with goal saturation >92%. Wean to goal. * Continue supportive care with albuterol inhaler, guaifenisin, cornet, and acetaminophen as needed for fever * Continue to trend CRP and acute phase reactants (2) Pneumonia: Code(s): J18.9 - Pneumonia, unspecified organism Status: Acute Assessment and Plan: CXR has new infiltrates compared to prior X-ray on 03/27/20. This may be secondary bacterial infection following viral respiratory disease. * Continue ceftriaxone and azithromycin * Sputum culture was not performed as sample was unacceptable for culture. Will attempt collection again. * Preliminary blood cultures reveal NGTD. Await final cultures * Urine pneumococcal antigen was not detected and legionella antigen is pending * MRSA culture is pending * Supportive care as above (3) Sepsis: Code(s): A41.9 - Sepsis, unspecified organism Status: Acute Assessment and Plan: Patient met criteria for sepsis based on fever and tachycardia with suspected source of infection being pulmonary infection, possibly viral due to covid but may be secondary bacterial infection. No leukocytosis. Lactic was initially elevated at 2.7 but is now WNL. * Continue to monitor vitals and labs closely * Blood cultures with NGTD. Await final (4) Type 2 diabetes mellitus with hyperglycemia: Qualifiers: Diabetes mellitus [place] [facility] insulin use: without [place] [facility] use Qualified Code(s): E11.65 - Type 2 diabetes mellitus with hyperglycemia Code(s): E11.65 - Type 2 diabetes mellitus with hyperglycemia Status: Acute Assessment and Plan: Patient reports noncompliance with medication as well as poor diet and lifestyle choices. Updated hemoglobin A1c is 9.7. His metformin was recently increased by PCP. Blood sugars have ranged from approximately 150-250. Blood sugar was reviewed today and is stable at 147. * Continue Accu-Cheks ACHS, high dose sliding scale, and hypoglycemia protocol * Continue metformin and Lantus * Patient requests evaluation from aircraft engine assembler and CDE, which will be via phone given he is Covid positive. He may benefit from outpatient Diabetes Education. (5) Benign essential hypertension: Code(s): I10 - Essential (primary) hypertension Status: Acute Assessment and Plan: Blood pressures have been elevated during his stay but appear to be improving with additional agent. Blood pressure is 121/78 today * Continue lisinopril and amlodipine. * Continue to monitor blood pressure closely. (6) Anxiety: Code(s): F41.9 - Anxiety disorder, unspecified Status: Acute
--- NOTE | 2020-04-05 10:08 | PM.IMPN ---
Progress Note: A&P Assessment and Plan (1) COVID-19: Code(s): U07.1 - COVID-19 Status: Acute Assessment and Plan: Patient tested positive for COVID-19 on 03/27/2020. He was initiated on azithromycin and hydroxychloroquine on 04/01/2020 by PCP. His chest x-ray reveals bilateral airspace disease consistent with infectious process with new infiltrates compared to CXR on 03/27/20. He has been febrile with Tmax 102.8. He is maintaining adequate oxygen saturation on 2L O2. Continue isolation precautions Continue ceftriaxone and azithromycin Hydroxychloroquine discontinued on 04/02/20. Patient is firmly requesting hydroxychloroquine. I had a brief discussion with patients PCP via phone today who also firmly recommends hydroxychloroquine. However, given patients QTc of 430 and potential risk for cardiac adverse event, I believe risks outweigh benefits at this time. Continue supplemental O2 as needed with goal saturation >92%. Wean to goal. Continue supportive care with albuterol inhaler, guaifenisin, cornet, and acetaminophen as needed for fever Continue to trend CRP and acute phase reactants (2) Pneumonia: Code(s): J18.9 - Pneumonia, unspecified organism Status: Acute Assessment and Plan: CXR has new infiltrates compared to prior X-ray on 03/27/20. This may be secondary bacterial infection following viral respiratory disease. Continue ceftriaxone and azithromycin Sputum culture was not performed as sample was unacceptable for culture. Will attempt collection again. Preliminary blood cultures reveal NGTD. Await final cultures Urine pneumococcal antigen was not detected and legionella antigen is pending MRSA culture is pending Supportive care as above (3) Sepsis: Code(s): A41.9 - Sepsis, unspecified organism Status: Acute Assessment and Plan: Patient met criteria for sepsis based on fever and tachycardia with suspected source of infection being pulmonary infection, possibly viral due to covid but may be secondary bacterial infection. No leukocytosis. Lactic was initially elevated at 2.7 but is now WNL. Continue to monitor vitals and labs closely Blood cultures with NGTD. Await final (4) Type 2 diabetes mellitus with hyperglycemia: Qualifiers: Diabetes mellitus ocean transportation intermediary insulin use: without [place] use Qualified Code(s): E11.65 - Type 2 diabetes mellitus with hyperglycemia Code(s): E11.65 - Type 2 diabetes mellitus with hyperglycemia Status: Acute Assessment and Plan: Patient reports noncompliance with medication as well as poor diet and lifestyle choices. Updated hemoglobin A1c is 9.7. His metformin was recently increased by PCP. Blood sugars have ranged from approximately 150-250. Blood sugar was reviewed today and is stable at 147. Continue Accu-Cheks ACHS, high dose sliding scale, and hypoglycemia protocol Continue metformin and Lantus Patient requests evaluation from magnetic prospector and CDE, which will be via phone given he is Covid positive. He may benefit from outpatient Diabetes Education. (5) Benign essential hypertension: Code(s): I10 - Essential (primary) hypertension Status: Acute Assessment and Plan: Blood pressures have been elevated during his stay but appear to be improving with additional agent. Blood pressure is 121/78 today Continue lisinopril and amlodipine. Continue to monitor blood pressure closely. (6) Anxiety: Code(s): F41.9 - Anxiety disorder, unspecified Status: Acute Assessment and Plan: Patient reports he is anxious about being in the hospital and being away from his family. He is fearful that he is going to . Continue prn ativan Subjective Date/time seen: 04/05/20 10:08 Interval history: Date of service: 04/05/2020 He is feeling better today. He reports that he finally got some good sleep last night and is feeling much improved no
[2020-04-05 10:59] LABS: Glucose Point of Care 120 (65-105)
[2020-04-05 11:21] LABS: Hematocrit 39.8 % (42.0-52.0); Hemoglobin 13.7 g/dL (14.0-18.0); Mean Corpuscular HGB Conc 34.4 g/dl (32-36); Mean Corpuscular Hemoglobin 28.7 pg (26-34); Mean Corpuscular Volume 83.3 fl (80-100); Mean Platelet Volume 8.8 fl (7.4-10.4); Platelet Count Result 227 k/mm3 (150-375); Red Blood Count 4.78 M/mm3 (4.6-6.20); Red Cell Distribution Width 13.1 % (11.5-14.5); White Blood Count 6.8 K/mm3 (4.5-10.0)
[2020-04-05 11:37] LABS: Alanine Aminotransferase 40 U/L (4-50); Albumin Level 3.7 g/dL (3.5-5.1); Alkaline Phosphatase 71 U/L (38-126); Aspartate Amino Transferase 44 U/L (17-59); Bilirubin,Total 0.5 mg/dL (0.2-1.3); Blood Urea Nitrogen 15 mg/dL (9-20); Calcium 8.3 mg/dL (8.4-10.2); Carbon Dioxide 26 mmol/L (22-30); Chloride 96 mmol/L (98-107); Creatine Kinase 169 U/L (55-170); Estimated CRCL calculation 129 ml/min; Estimated Glomerular Filt Rate > 60; Glucose 172 mg/dL (75-110); Lactate Dehydrogenase 766 U/L (313-618); Potassium 4.1 mmol/L (3.4-5.0); Sodium 130 mmol/L (137-145)
[2020-04-05 13:08] LABS: Glucose Point of Care 117 (65-105)
[2020-04-05 18:19] LABS: Legionella pneumophila Ag Ur Not Detected (Not Detected)
[2020-04-05] MEDS: INSULIN GLARGINE (*BKC) 100 UNITS/ML 20 UNITS SUB-Q (20:17)
[2020-04-05] MEDS: DOCUSATE SODIUM 100 MG CAPSULE PO (20:26)
[2020-04-05] MEDS: GUAIFENESIN/DEXTROMETHORPHAN 10 ML UDC PO (21:44)
[2020-04-05 22:51] LABS: Glucose Point of Care 142 (65-105)
[2020-04-06] VITALS (11 sets, daily range): BP systolic 114–150; BP diastolic 68–86; PULSE 87–101; RESP 16–20; TEMP 36.9–38.4; O2SAT 90–97
[2020-04-06] MEDS: GUAIFENESIN/DEXTROMETHORPHAN 10 ML UDC PO ×3 (01:42→09:39)
[2020-04-06] MEDS: MORPHINE SULFATE 4 MG/ML INJ IV PUSH (01:42)
[2020-04-06 04:33] LABS: Glucose Point of Care 144 (65-105)
[2020-04-06] MEDS: ACETAMINOPHEN 325 MG TABLET 650 MG PO ×2 (05:15→21:45)
[2020-04-06 07:44] LABS: Basophils Percent Auto 0.1 % (0.2-1.2); Eosinophils Percent Auto 0.3 % (0-4.4); Hematocrit 37.6 % (42.0-52.0); Hemoglobin 12.7 g/dL (14.0-18.0); Immature Granulocyte Absolute 0.04 K/mm3 (0.00-0.031); Immature Granulocyte Percent A 0.6 % (0-0.5); Lymphocytes Absolute Auto 1.03 K/mm3 (0.9-3.2); Lymphocytes Percent Auto 14.8 % (18.3-44.2); Mean Corpuscular HGB Conc 33.8 g/dl (32-36); Mean Corpuscular Hemoglobin 28.2 pg (26-34); Mean Corpuscular Volume 83.4 fl (80-100); Mean Platelet Volume 8.8 fl (7.4-10.4); Monocytes Absolute Auto 0.2 K/mm3 (0.1-0.6); Monocytes Percent Auto 2.7 % (2.6-8.5); Neutrophils Absolute Auto 5.7 K/mm3 (1.3-6.7); Neutrophils Percent Auto 81.5 % (45.5-73.1); Platelet Count Result 246 k/mm3 (150-375); Red Blood Count 4.51 M/mm3 (4.6-6.20); Red Cell Distribution Width 13.1 % (11.5-14.5)
[2020-04-06 08:19] LABS: Alanine Aminotransferase 41 U/L (4-50); Albumin Level 3.4 g/dL (3.5-5.1); Alkaline Phosphatase 67 U/L (38-126); Aspartate Amino Transferase 45 U/L (17-59); Bilirubin,Total 0.4 mg/dL (0.2-1.3); Blood Urea Nitrogen 15 mg/dL (9-20); Calcium 8.2 mg/dL (8.4-10.2); Carbon Dioxide 26 mmol/L (22-30); Chloride 97 mmol/L (98-107); Creatine Kinase 192 U/L (55-170); Estimated CRCL calculation 129 ml/min; Estimated Glomerular Filt Rate > 60; Glucose 160 mg/dL (75-110); Lactate Dehydrogenase 776 U/L (313-618); Potassium 4.1 mmol/L (3.4-5.0); Sodium 129 mmol/L (137-145)
[2020-04-06 08:25] LABS: CRP 23.2 mg/dL (<1.0)
[2020-04-06] MEDS: ALBUTEROL SULFATE (*SP) INHALER 2 PUFF INHALATION ×4 (08:34→20:52)
[2020-04-06] MEDS: AMLODIPINE BESYLATE 5 MG TABLET PO (09:37)
[2020-04-06] MEDS: ENOXAPARIN 40 MG/0.4 ML SYRINGE SUB-Q ×2 (09:38→20:32)
[2020-04-06] MEDS: metFORMIN HCL XR 500 MG TAB.SR.24H 1000 MG PO ×2 (09:38→17:41)
[2020-04-06] MEDS: lisinopriL 20 MG TABLET 40 MG PO (09:38)
[2020-04-06] MEDS: PANTOPRAZOLE 40 MG TABLET PO ×2 (09:38→20:33)
[2020-04-06] MEDS: polyethylene glycoL 3350 17 GM POWD.PACK PO (09:39)
[2020-04-06 10:41] LABS: Glucose Point of Care 143 (65-105)
--- NOTE | 2020-04-06 11:38 | P.PNIM_ITS ---
Progress Note: A&P Assessment and Plan (1) COVID-19: Code(s): U07.1 - COVID-19 Status: Acute Assessment and Plan: Patient tested positive for COVID-19 on 03/27/2020. He was initiated on azithromycin and hydroxychloroquine on 04/01/2020 by PCP. His chest x-ray reveals bilateral airspace disease consistent with infectious process with new infiltrates compared to CXR on 03/27/20. He has been febrile with Tmax 102.8. He is maintaining adequate oxygen saturation on 2L O2. * Continue isolation precautions * Continue ceftriaxone and Azithromycin. Plan to dc Azithromycin tomorrow as patient will complete 6 days of therapy. * Discontinue Azithromycin as patient has had 6 doses. * Hydroxychloroquine discontinued on 04/02/20. Patient is firmly requesting hydroxychloroquine and I had a brief discussion with patients PCP via phone 04/05/20 who also firmly recommends hydroxychloroquine. However, given patients QTc and potential risk for cardiac adverse event, I believe risks outweigh benefits at this time. * Continue supplemental O2 as needed with goal saturation >92%. Wean to goal. * Continue supportive care with albuterol inhaler, guaifenisen/robitussin, cornet, and acetaminophen as needed for fever * Continue to trend CRP and acute phase reactants. CRP and LDH noted to be trending up. * Repeat CXR (2) Pneumonia: Code(s): J18.9 - Pneumonia, unspecified organism Status: Acute Assessment and Plan: CXR has new infiltrates compared to prior X-ray on 03/27/20. This may be secondary bacterial infection following viral respiratory disease. * Continue ceftriaxone and azithromycin * Sputum culture was not performed and sample was unacceptable for culture. Will attempt collection again. * Preliminary blood cultures reveal NGTD. Await final cultures * Urine pneumococcal antigen and Legionella antigen was not detected * MRSA culture is pending * Supportive care as above (3) Sepsis: Code(s): A41.9 - Sepsis, unspecified organism Status: Acute Assessment and Plan: Patient met criteria for sepsis based on fever and tachycardia with suspected source of infection being pulmonary infection, possibly viral due to covid but may be secondary bacterial infection. No leukocytosis. Lactic was initially elevated at 2.7 but is now WNL. * Continue to monitor vitals and labs closely * Blood cultures with NGTD. Await final (4) Hyponatremia: Code(s): E87.1 - Hypo-osmolality and hyponatremia Status: Acute Assessment and Plan: Patient has had mild hyponatremia which has been relatively stable ranging from 129-134. He is asymptomatic. * Order urine sodium to evaluate potential etiologies (5) Type 2 diabetes mellitus with hyperglycemia: Qualifiers: Diabetes mellitus alf insulin use: without buttermilk drier operator use Qualified Code(s): E11.65 - Type 2 diabetes mellitus with hyperglycemia Code(s): E11.65 - Type 2 diabetes mellitus with hyperglycemia Status: Acute Assessment and Plan: Patient reports noncompliance with medication as well as poor diet and lifestyle choices. Updated hemoglobin A1c is 9.7. His metformin was recently increased by PCP. Blood sugars have ranged from approximately 150-250. Blood sugar was reviewed today and is stable at 160. * Continue Accu-Cheks ACHS, high dose sliding scale, and hypoglycemia protocol * Continue metformin and Lantus * Patient requests evaluation from account maintenance representative and CDE, which will be via phone given he is Covid positive. He may benefit from outpatient Diabetes Education
--- NOTE | 2020-04-06 11:38 | PM.IMPN ---
Progress Note: A&P Assessment and Plan (1) COVID-19: Code(s): U07.1 - COVID-19 Status: Acute Assessment and Plan: Patient tested positive for COVID-19 on 03/27/2020. He was initiated on azithromycin and hydroxychloroquine on 04/01/2020 by PCP. His chest x-ray reveals bilateral airspace disease consistent with infectious process with new infiltrates compared to CXR on 03/27/20. He has been febrile with Tmax 102.8. He is maintaining adequate oxygen saturation on 2L O2. Continue isolation precautions Continue ceftriaxone and Azithromycin. Plan to dc Azithromycin tomorrow as patient will complete 6 days of therapy. Discontinue Azithromycin as patient has had 6 doses. Hydroxychloroquine discontinued on 04/02/20. Patient is firmly requesting hydroxychloroquine and I had a brief discussion with patients PCP via phone 04/05/20 who also firmly recommends hydroxychloroquine. However, given patients QTc and potential risk for cardiac adverse event, I believe risks outweigh benefits at this time. Continue supplemental O2 as needed with goal saturation >92%. Wean to goal. Continue supportive care with albuterol inhaler, guaifenisen/robitussin, cornet, and acetaminophen as needed for fever Continue to trend CRP and acute phase reactants. CRP and LDH noted to be trending up. Repeat CXR (2) Pneumonia: Code(s): J18.9 - Pneumonia, unspecified organism Status: Acute Assessment and Plan: CXR has new infiltrates compared to prior X-ray on 03/27/20. This may be secondary bacterial infection following viral respiratory disease. Continue ceftriaxone and azithromycin Sputum culture was not performed and sample was unacceptable for culture. Will attempt collection again. Preliminary blood cultures reveal NGTD. Await final cultures Urine pneumococcal antigen and Legionella antigen was not detected MRSA culture is pending Supportive care as above (3) Sepsis: Code(s): A41.9 - Sepsis, unspecified organism Status: Acute Assessment and Plan: Patient met criteria for sepsis based on fever and tachycardia with suspected source of infection being pulmonary infection, possibly viral due to covid but may be secondary bacterial infection. No leukocytosis. Lactic was initially elevated at 2.7 but is now WNL. Continue to monitor vitals and labs closely Blood cultures with NGTD. Await final (4) Hyponatremia: Code(s): E87.1 - Hypo-osmolality and hyponatremia Status: Acute Assessment and Plan: Patient has had mild hyponatremia which has been relatively stable ranging from 129-134. He is asymptomatic. Order urine sodium to evaluate potential etiologies (5) Type 2 diabetes mellitus with hyperglycemia: Qualifiers: Diabetes mellitus longterm insulin use: without vermin exterminator use Qualified Code(s): E11.65 - Type 2 diabetes mellitus with hyperglycemia Code(s): E11.65 - Type 2 diabetes mellitus with hyperglycemia Status: Acute Assessment and Plan: Patient reports noncompliance with medication as well as poor diet and lifestyle choices. Updated hemoglobin A1c is 9.7. His metformin was recently increased by PCP. Blood sugars have ranged from approximately 150-250. Blood sugar was reviewed today and is stable at 160. Continue Accu-Cheks ACHS, high dose sliding scale, and hypoglycemia protocol Continue metformin and Lantus Patient requests evaluation from filament shaper and CDE, which will be via phone given he is Covid positive. He may benefit from outpatient Diabetes Education. (6) Benign essential hypertension: Code(s): I10 - Essential (primary) hypertension Status: Acute Assessment and Plan: Blood pressures have been elevated during his stay but improving with additional agent. Blood pressure is 117/80 today Continue lisinopril and amlodipine. Continue to monitor blood pressure closely. (7) Anxiety: C
[2020-04-06 13:52] LABS: Glucose Point of Care 100 (65-105)
[2020-04-06] MEDS: NEOMYCIN/POLYMYXIN/BACITRACIN OINTMENT 15 GM TUBE 1 APPLIC TOPICAL (17:41)
[2020-04-06 18:47] LABS: Sodium Urine Random 55 meq/L
[2020-04-06] MEDS: INSULIN GLARGINE (*BKC) 100 UNITS/ML 20 UNITS SUB-Q (20:44)
[2020-04-07] VITALS (10 sets, daily range): BP systolic 119–161; BP diastolic 70–99; PULSE 74–94; RESP 16–20; TEMP 36.1–37.4; O2SAT 93–98
[2020-04-07 04:03] LABS: Glucose Point of Care 128 (65-105)
[2020-04-07 07:31] LABS: Glucose Point of Care 162 (65-105)
[2020-04-07] MEDS: ACETAMINOPHEN 325 MG TABLET 650 MG PO (08:23)
[2020-04-07] MEDS: ENOXAPARIN 40 MG/0.4 ML SYRINGE SUB-Q ×2 (08:23→21:51)
[2020-04-07] MEDS: lisinopriL 20 MG TABLET 40 MG PO (08:24)
[2020-04-07] MEDS: AMLODIPINE BESYLATE 5 MG TABLET PO (08:25)
[2020-04-07] MEDS: metFORMIN HCL XR 500 MG TAB.SR.24H 1000 MG PO ×2 (08:25→17:59)
[2020-04-07] MEDS: NEOMYCIN/POLYMYXIN/BACITRACIN OINTMENT 15 GM TUBE 1 APPLIC TOPICAL (08:26)
[2020-04-07] MEDS: ALBUTEROL SULFATE (*SP) INHALER 2 PUFF INHALATION ×4 (10:36→20:00)
--- NOTE | 2020-04-07 11:51 | PM.IMPN ---
Progress Note: A&P Assessment and Plan (1) COVID-19: Code(s): U07.1 - COVID-19 Status: Acute Assessment and Plan: Patient tested positive for COVID-19 on 03/27/2020. He was initiated on azithromycin and hydroxychloroquine on 04/01/2020 by PCP. His chest x-ray reveals bilateral airspace disease consistent with infectious process with new infiltrates compared to CXR on 03/27/20. He has been febrile with Tmax 102.8. He is maintaining adequate oxygen saturation on 2L O2. Repeat chest x-ray yesterday revealed slight worsening of bilateral airspace opacities. Continue isolation precautions Continue ceftriaxone Azithromycin discontinued on 04/06. Patient completed 6 doses Hydroxychloroquine discontinued on 04/02/20. Patient had 1 dose as an outpatient. Patient is firmly requesting hydroxychloroquine and I had a brief discussion with patients PCP via phone 04/05/20 who also firmly recommends. However, given patients QTc and potential risk for cardiac adverse event, I believe risks outweigh benefits at this time. Continue supplemental O2 as needed with goal saturation >92%. Wean to goal. Continue supportive care with albuterol inhaler, guaifenesin/DM, cornet, and acetaminophen as needed for fever Continue to trend CRP and acute phase reactants. CRP and LDH noted to be trending up. Continue to monitor chest x-ray for changes (2) Pneumonia: Code(s): J18.9 - Pneumonia, unspecified organism Status: Acute Assessment and Plan: CXR has new infiltrates compared to prior X-ray on 03/27/20. This may be secondary bacterial infection following viral respiratory disease. Continue ceftriaxone Sputum culture was performed and sample was unacceptable for culture. Repeat sputum culture is pending Preliminary blood cultures reveal NGTD. Await final cultures Urine pneumococcal antigen and Legionella antigen was not detected MRSA culture is negative. Supportive care as above (3) Sepsis: Code(s): A41.9 - Sepsis, unspecified organism Status: Acute Assessment and Plan: Patient met criteria for sepsis based on fever and tachycardia with suspected source of infection being pulmonary infection, possibly viral due to covid but may be secondary bacterial infection. No leukocytosis. Lactic was initially elevated at 2.7 but is now WNL. Continue to monitor vitals and labs closely Blood cultures with NGTD. Await final (4) Hyponatremia: Code(s): E87.1 - Hypo-osmolality and hyponatremia Status: Acute Assessment and Plan: Patient has had mild hyponatremia which has been relatively stable ranging from 129-134. He is asymptomatic. Urine sodium is 55. Labs are delayed today and serum sodium level is unknown. Will continue to monitor Will make every effort to avoid IV fluids given patients risk for fluid overload with lung disease (5) Type 2 diabetes mellitus with hyperglycemia: Qualifiers: Diabetes mellitus termite exterminator insulin use: without termite exterminator use Qualified Code(s): E11.65 - Type 2 diabetes mellitus with hyperglycemia Code(s): E11.65 - Type 2 diabetes mellitus with hyperglycemia Status: Acute Assessment and Plan: Patient reports noncompliance with medication as well as poor diet and lifestyle choices. Updated hemoglobin A1c is 9.7. His metformin was recently increased by PCP. Blood sugars have ranged from approximately 150-250 during his stay and appear to be improving. Continue Accu-Cheks ACHS, high dose sliding scale, and hypoglycemia protocol Continue metformin and Lantus Patient requested evaluation from public housing manager and CDE, which were completed via phone given he is Covid positive. He may benefit from outpatient Diabetes Education. (6) Benign essential hypertension: Code(s): I10 - Essential (primary) hypertension Status: Acute Assessment and Plan: Blood pressures have been elevated during his stay but
[2020-04-07] MEDS: FAMOTIDINE 20 MG/2 ML VIAL IV PUSH ×2 (12:44→21:51)
[2020-04-07 12:47] LABS: Basophils Percent Auto 0.3 % (0.2-1.2); Eosinophils Absolute Auto 0.1 K/mm3 (0-0.3); Eosinophils Percent Auto 1.8 % (0-4.4); Hematocrit 40.9 % (42.0-52.0); Hemoglobin 13.7 g/dL (14.0-18.0); Immature Granulocyte Absolute 0.05 K/mm3 (0.00-0.031); Immature Granulocyte Percent A 0.8 % (0-0.5); Lymphocytes Percent Auto 23.1 % (18.3-44.2); Mean Corpuscular HGB Conc 33.5 g/dl (32-36); Mean Corpuscular Hemoglobin 27.6 pg (26-34); Mean Corpuscular Volume 82.3 fl (80-100); Mean Platelet Volume 8.6 fl (7.4-10.4); Monocytes Absolute Auto 0.3 K/mm3 (0.1-0.6); Monocytes Percent Auto 4.5 % (2.6-8.5); Neutrophils Absolute Auto 4.2 K/mm3 (1.3-6.7); Neutrophils Percent Auto 69.5 % (45.5-73.1); Platelet Count Result 313 k/mm3 (150-375); Red Blood Count 4.97 M/mm3 (4.6-6.20); Red Cell Distribution Width 12.8 % (11.5-14.5); White Blood Count 6.1 K/mm3 (4.5-10.0)
[2020-04-07 13:05] LABS: Alanine Aminotransferase 48 U/L (4-50); Albumin Level 3.7 g/dL (3.5-5.1); Alkaline Phosphatase 75 U/L (38-126); Aspartate Amino Transferase 52 U/L (17-59); Bilirubin,Total 0.4 mg/dL (0.2-1.3); Blood Urea Nitrogen 12 mg/dL (9-20); Carbon Dioxide 27 mmol/L (22-30); Chloride 100 mmol/L (98-107); Estimated CRCL calculation 146 ml/min; Estimated Glomerular Filt Rate > 60; Glucose 134 mg/dL (75-110); Lactate Dehydrogenase 783 U/L (313-618); Potassium 4.1 mmol/L (3.4-5.0); Sodium 133 mmol/L (137-145)
[2020-04-07] MEDS: GUAIFENESIN/DEXTROMETHORPHAN 10 ML UDC PO (17:58)
[2020-04-07 19:38] LABS: Glucose Point of Care 124 (65-105)
[2020-04-07 19:38] LABS: Glucose Point of Care 162 (65-105)
[2020-04-07 19:38] LABS: Glucose Point of Care 103 (65-105)
[2020-04-07] MEDS: INSULIN GLARGINE (*BKC) 100 UNITS/ML 20 UNITS SUB-Q (21:53)
[2020-04-07 22:20] LABS: Glucose Point of Care 178 (65-105)
[2020-04-08] VITALS (7 sets, daily range): BP systolic 132–161; BP diastolic 71–92; PULSE 76–89; RESP 16–20; TEMP 36.4–37.4; O2SAT 90–97
[2020-04-08] MEDS: GUAIFENESIN/DEXTROMETHORPHAN 10 ML UDC PO ×2 (04:19→17:31)
[2020-04-08] MEDS: LORAZEPAM 0.5 MG TABLET PO (04:20)
[2020-04-08 06:48] LABS: Basophils Percent Auto 0.3 % (0.2-1.2); Eosinophils Absolute Auto 0.2 K/mm3 (0-0.3); Eosinophils Percent Auto 3.1 % (0-4.4); Hematocrit 38.1 % (42.0-52.0); Hemoglobin 12.6 g/dL (14.0-18.0); Immature Granulocyte Absolute 0.06 K/mm3 (0.00-0.031); Lymphocytes Absolute Auto 1.44 K/mm3 (0.9-3.2); Lymphocytes Percent Auto 24.7 % (18.3-44.2); Mean Corpuscular HGB Conc 33.1 g/dl (32-36); Mean Corpuscular Hemoglobin 27.8 pg (26-34); Mean Corpuscular Volume 84.1 fl (80-100); Mean Platelet Volume 8.3 fl (7.4-10.4); Monocytes Absolute Auto 0.3 K/mm3 (0.1-0.6); Monocytes Percent Auto 5.7 % (2.6-8.5); Neutrophils Absolute Auto 3.8 K/mm3 (1.3-6.7); Neutrophils Percent Auto 65.2 % (45.5-73.1); Platelet Count Result 304 k/mm3 (150-375); Red Blood Count 4.53 M/mm3 (4.6-6.20); Red Cell Distribution Width 12.8 % (11.5-14.5); White Blood Count 5.8 K/mm3 (4.5-10.0)
[2020-04-08 07:41] LABS: Alanine Aminotransferase 55 U/L (4-50); Albumin Level 3.4 g/dL (3.5-5.1); Alkaline Phosphatase 66 U/L (38-126); Aspartate Amino Transferase 59 U/L (17-59); Bilirubin,Total 0.4 mg/dL (0.2-1.3); Blood Urea Nitrogen 10 mg/dL (9-20); Calcium 8.4 mg/dL (8.4-10.2); Carbon Dioxide 29 mmol/L (22-30); Chloride 100 mmol/L (98-107); Estimated CRCL calculation 129 ml/min; Estimated Glomerular Filt Rate > 60; Glucose 148 mg/dL (75-110); Lactate Dehydrogenase 709 U/L (313-618); Potassium 3.9 mmol/L (3.4-5.0); Sodium 135 mmol/L (137-145)
[2020-04-08 08:20] LABS: CRP 14.1 mg/dL (<1.0)
[2020-04-08] MEDS: metFORMIN HCL XR 500 MG TAB.SR.24H 1000 MG PO ×2 (08:49→17:42)
[2020-04-08] MEDS: ENOXAPARIN 40 MG/0.4 ML SYRINGE SUB-Q ×2 (08:49→20:39)
[2020-04-08] MEDS: FAMOTIDINE 20 MG/2 ML VIAL IV PUSH ×2 (08:50→20:40)
[2020-04-08] MEDS: lisinopriL 20 MG TABLET 40 MG PO (08:50)
[2020-04-08] MEDS: NEOMYCIN/POLYMYXIN/BACITRACIN OINTMENT 15 GM TUBE 1 APPLIC TOPICAL (08:51)
[2020-04-08] MEDS: AMLODIPINE BESYLATE 5 MG TABLET PO (09:00)
[2020-04-08] MEDS: ALBUTEROL SULFATE (*SP) INHALER 2 PUFF INHALATION ×3 (09:17→21:20)
[2020-04-08 09:45] LABS: Glucose Point of Care 114 (65-105)
--- NOTE | 2020-04-08 11:25 | PM.IMPN ---
Progress Note: A&P Assessment and Plan (1) COVID-19: Code(s): U07.1 - COVID-19 <Darlene Juarez PA-C - Last Filed: 04/08/20 11:47> Status: Acute <Darlene Juarez PA-C - Last Filed: 04/08/20 11:47> Assessment and Plan: Patient tested positive for COVID-19 on 03/27/2020. He was initiated on azithromycin and hydroxychloroquine on 04/01/2020 by PCP. His chest x-ray reveals bilateral airspace disease consistent with infectious process with new infiltrates compared to CXR on 03/27/20. He has been febrile with Tmax 102.8. He is maintaining adequate oxygen saturation on 2L O2. Serial CXR demonstrate progression of diffuse lung disease. Continue isolation precautions Continue ceftriaxone Azithromycin discontinued on 04/06. Patient completed 6 doses Hydroxychloroquine discontinued on 04/02/20. Patient had 1 dose as an outpatient. Patient is firmly requesting hydroxychloroquine and I had a brief discussion with patients PCP via phone 04/05/20 who also firmly recommends. However, given patients QTc and potential risk for cardiac adverse event, I believe risks outweigh benefits at this time. Continue supplemental O2 as needed with goal saturation >92%. Wean to goal. Continue supportive care with albuterol inhaler, guaifenesin/DM, cornet, and acetaminophen as needed for fever Continue to trend CRP and acute phase reactants. Acute phase reactants appear to be trending downward today. Continue to monitor chest x-ray A consult has been placed to infectious disease specialist Dr. Cruz given progression. His recommendations are appreciated. <Darlene Juarez PA-C - Last Filed: 04/08/20 11:47> (2) Pneumonia: Code(s): J18.9 - Pneumonia, unspecified organism <Darlene Juarez PA-C - Last Filed: 04/08/20 11:47> Status: Acute <Darlene Juarez PA-C - Last Filed: 04/08/20 11:47> Assessment and Plan: CXR has new infiltrates compared to prior X-ray on 03/27/20. This may be secondary bacterial infection following viral respiratory disease. Continue ceftriaxone Repeat sputum culture demonstrates mixed bacterial terri without white blood cells. Initial sputum culture was not performed given unacceptable stable Preliminary blood cultures reveal NGTD. Await final cultures Urine pneumococcal antigen and Legionella antigen was not detected MRSA culture is negative. Supportive care as above <JIMENA Truong-C - Last Filed: 04/08/20 11:47> (3) Sepsis: Code(s): A41.9 - Sepsis, unspecified organism <JIMENA Truong-C - Last Filed: 04/08/20 11:47> Status: Acute <JIMENA Truong-C - Last Filed: 04/08/20 11:47> Assessment and Plan: Patient met criteria for sepsis based on fever and tachycardia with suspected source of infection being pulmonary. No leukocytosis. Lactic was initially elevated at 2.7 but is now WNL. Continue to monitor vitals and labs closely Blood cultures with NGTD. Await final <JIMENA Truong-C - Last Filed: 04/08/20 11:47> (4) Hyponatremia: Code(s): E87.1 - Hypo-osmolality and hyponatremia <JIMENA Truong-C - Last Filed: 04/08/20 11:47> Status: Acute <JIMENA Truong-C - Last Filed: 04/08/20 11:47> Assessment and Plan: Patient has had mild hyponatremia which has been relatively stable ranging from 129-134. He is asymptomatic. Urine sodium is 55. Sodium is 135 today. Continue to monitor sodium levels Will make every effort to avoid IV fluids given patients risk for fluid overload with lung disease <JIMENA Truong-C - Last Filed: 04/08/20 11:47> (5) Type 2 diabetes mellitus with hyperglycemia: Qualifiers: Diabetes mellitus skilled nursing insulin use: without long term care pharmacist use Qualified Code(s): E11.65 - Type 2 diabetes mellitus with hyperglycemia <JIMENA Truong-C - Last Filed: 04/08/20 11:47> Code(s):
--- NOTE | 2020-04-08 11:31 | PC.NURSE ---
Received call from Dr. Ernst who wanted to discuss care provided to pt. Dr. Ernst was discussing potential of plaquenil and other concerns. Passed these concerns onto Dr. Gibbons who addressed them with Darlene.
--- NOTE | 2020-04-08 15:31 | PCCDE ---
Diabetes Education f/up note: pt continues on 20 units Lantus HS and 1gm Metformin XR BID plus high dose correction scale (however has not needed this). BG pattern noted: FBS 114-143, lunch 100-124, dinner 162, HS 128-178mg/dl. No hypoglycemia noted. [id number]: called pt's room (d/t COVID +). Pt sts I am going to get my crap together and lose weight so that I don't have anymore of this diabetes and high blood pressure stuff. Pt had pertinent questions about types of diabetes and the treatments. Explained physiology of insulin needs, insulin resistance and the importance of weight loss to reverse insulin resistance but insulin may be necessary until he can lose weight. Pt agreed to watch video about how to use insulin pen. Lantus is not covered with [facility] but Basaglar is so he was referred to the website [email or web address] where he watched video on using long acting insulin pen. After video, pt had pertinent questions about hypoglycemia. I have a coworker who sometimes needs candy, do I have that kind of diabetes? Reviewed causes, sx and tx of hypoglycemia. Reviewed nl vs target BG before meals. Reassured pt that all in video and that we discussed is in the DM book he was given last week. Pt had staff in room. Will f/u in 2 days.
[2020-04-08 17:08] LABS: Glucose Point of Care 151 (65-105)
[2020-04-08] MEDS: INSULIN ASPART (*BKC) 100 UNITS/ML SUB-Q (17:41)
[2020-04-08 18:08] LABS: Glucose Point of Care 206 (65-105)
[2020-04-08] MEDS: INSULIN GLARGINE (*BKC) 100 UNITS/ML 20 UNITS SUB-Q (20:40)
[2020-04-08 22:06] LABS: Glucose Point of Care 174 (65-105)
[2020-04-09] VITALS (9 sets, daily range): BP systolic 136–165; BP diastolic 77–99; PULSE 78–94; RESP 14–22; TEMP 36.7–37.6; O2SAT 92–98
[2020-04-09 06:32] LABS: Basophils Percent Auto 0.4 % (0.2-1.2); Eosinophils Absolute Auto 0.3 K/mm3 (0-0.3); Eosinophils Percent Auto 4.6 % (0-4.4); Hematocrit 37.9 % (42.0-52.0); Hemoglobin 12.7 g/dL (14.0-18.0); Immature Granulocyte Absolute 0.07 K/mm3 (0.00-0.031); Immature Granulocyte Percent A 1.2 % (0-0.5); Lymphocytes Absolute Auto 1.68 K/mm3 (0.9-3.2); Lymphocytes Percent Auto 29.9 % (18.3-44.2); Mean Corpuscular HGB Conc 33.5 g/dl (32-36); Mean Corpuscular Hemoglobin 27.8 pg (26-34); Mean Corpuscular Volume 82.9 fl (80-100); Mean Platelet Volume 8.1 fl (7.4-10.4); Monocytes Absolute Auto 0.3 K/mm3 (0.1-0.6); Monocytes Percent Auto 5.5 % (2.6-8.5); Neutrophils Absolute Auto 3.3 K/mm3 (1.3-6.7); Neutrophils Percent Auto 58.4 % (45.5-73.1); Platelet Count Result 371 k/mm3 (150-375); Red Blood Count 4.57 M/mm3 (4.6-6.20); Red Cell Distribution Width 12.7 % (11.5-14.5); White Blood Count 5.6 K/mm3 (4.5-10.0)
[2020-04-09 06:53] LABS: Alanine Aminotransferase 83 U/L (4-50); Albumin Level 3.5 g/dL (3.5-5.1); Alkaline Phosphatase 66 U/L (38-126); Aspartate Amino Transferase 86 U/L (17-59); Bilirubin,Total 0.4 mg/dL (0.2-1.3); Blood Urea Nitrogen 10 mg/dL (9-20); CRP 8.7 mg/dL (<1.0); Calcium 8.6 mg/dL (8.4-10.2); Carbon Dioxide 29 mmol/L (22-30); Chloride 100 mmol/L (98-107); Estimated CRCL calculation 129 ml/min; Estimated Glomerular Filt Rate > 60; Glucose 135 mg/dL (75-110); Lactate Dehydrogenase 736 U/L (313-618); Potassium 3.9 mmol/L (3.4-5.0); Sodium 134 mmol/L (137-145)
[2020-04-09 07:52] LABS: Glucose Point of Care 117 (65-105)
[2020-04-09] MEDS: ALBUTEROL SULFATE (*SP) INHALER 2 PUFF INHALATION ×4 (08:40→20:57)
[2020-04-09] MEDS: metFORMIN HCL XR 500 MG TAB.SR.24H 1000 MG PO ×2 (09:10→17:27)
[2020-04-09] MEDS: ENOXAPARIN 40 MG/0.4 ML SYRINGE SUB-Q ×2 (09:10→22:21)
[2020-04-09] MEDS: lisinopriL 20 MG TABLET 40 MG PO (09:10)
[2020-04-09] MEDS: AMLODIPINE BESYLATE 5 MG TABLET PO (09:10)
[2020-04-09] MEDS: NEOMYCIN/POLYMYXIN/BACITRACIN OINTMENT 15 GM TUBE 1 APPLIC TOPICAL (09:11)
[2020-04-09] MEDS: FAMOTIDINE 20 MG/2 ML VIAL IV PUSH ×2 (09:11→22:21)
[2020-04-09] MEDS: polyethylene glycoL 3350 17 GM POWD.PACK PO (09:12)
--- NOTE | 2020-04-09 11:44 | WPDINFPN2 ---
Progress Note: A&P Assessment and Plan (1) COVID-19: Code(s): U07.1 - COVID-19 Status: Acute Assessment and Plan: 1. CoVid 19 viral pneumonia, moderate 2. DM REC No antibacterials. New RCT today (not yet published) shows mortality benefit in O2 dependent viral pneumonia given dexamethasone I think that this will provide more benefit - for this patient at this phase of his illness - than remdesivir, so will initiate. Subjective Date/time seen: 04/09/20 11:44 Objective Data Vital Signs Vital Signs: Vital Signs - 24 hr 04/08/20 14:00 04/08/20 18:00 04/08/20 22:00 Temperature 36.7 C 37.0 C 36.8 C Pulse Rate 86 89 83 Respiratory Rate 18 16 18 Blood Pressure 140/92 H 138/83 152/75 H Pulse Oximetry 90 95 97 04/09/20 02:00 04/09/20 02:49 04/09/20 06:00 Temperature 36.8 C 36.7 C Pulse Rate 78 90 Respiratory Rate 20 20 Blood Pressure 157/77 H 136/95 H Pulse Oximetry 98 98 97 04/09/20 08:41 04/09/20 10:00 Temperature 37.6 C Pulse Rate 89 Respiratory Rate 14 Blood Pressure 155/92 H Pulse Oximetry 92 96 Intake/Output Intake/Output: Intake & Output 04/06/20 04/07/20 04/08/20 04/09/20 23:59 23:59 23:59 23:59 Intake Total 1580 1480 2360 850 Output Total 2750 2600 1225 400 Balance -1170 -1120 1135 450 Meds/Results Medications: Active Medications Generic Name Dose Route Start Last Admin Trade Name Freq PRN Reason Stop Dose Admin Acetaminophen 650 mg 04/04/20 15:22 04/07/20 08:23 Tylenol Tablet PO 650 mg Q4H PRN Administration Mild pain 1-3, Fever Hydrocodone Bitart/Acetaminophen 1 tab 04/02/20 03:01 04/08/20 04:19 Firth 5-325 Mg PO 1 tab Q4H PRN Administration Pain Rated 4-6 Albuterol 2 puff 04/02/20 12:00 04/09/20 08:40 Proventil Hfa INHALATION 2 puff QIDRT KLEVER Administration Amlodipine Besylate 5 mg 04/04/20 09:00 04/09/20 09:10 Norvasc PO 5 mg QAM KLEVER Administration Dexamethasone 2 mg 04/09/20 11:45 Dexamethasone Po PO 04/18/20 23:59 DAILY@0800 KLEVER Dexamethasone 4 mg 04/09/20 11:45 Dexamethasone Po PO 04/18/20 23:59 DAILY@0800 [facility] Dextrose 12.5 gm 04/02/20 10:12 Dextrose 50% Syringe IV PUSH PRN PRN Hypoglycemia Protocol Docusate Sodium 100 mg 04/05/20 10:10 04/05/20 20:26 Colace Capsule PO 100 mg Q12H PRN Administration Constipation Enoxaparin Sodium 40 mg 04/06/20 09:00 04/09/20 09:10 Lovenox SUB-Q 40 mg Q12HR KLEVER Administration Famotidine 20 mg 04/07/20 09:00 04/09/20 09:11 Pepcid Iv IV PUSH 20 mg Q12HR KLEVER Administration Glucagon 1 mg 04/02/20 10:12 Glucagon For Inj IM PRN PRN Hypoglycemia Protocol Glucose 15 gm 04/02/20 10:12 Glutose 15 PO PRN PRN Hypoglycemia Protocol Guaifenesin/Dextromethorphan 10 ml 04/07/20 10:30 04/08/20 17:31 Robitussin-Dm Syrup PO 10 ml Q4H PRN Administration Cough Dextrose 1,000 mls @ 100 mls/hr 04/02/20 10:12 Dextrose 5% 1,000 Ml IVPB PRN PRN Hypoglycemia Protocol Insulin Aspart 4 - 8 units 04/03/20 12:00 04/09/20 08:59 Novolog SUB-Q Not Given TIDWM [facility] Protocol Insulin Glargine 20 units 04/03/20 21:00 04/08/20 20:40 Lantus 0.15 units/kg (20 units) 20 units SUB-Q Administration HS KLEVER Lisinopril 40 mg 04/02/20 09:00 04/09/20 09:10 Prinivil PO 40 mg DAILY KLEVER Administration Lorazepam 0.5 mg 04/04/20 12:26 04/08/20 04:20 Ativan Tab PO 0.5 mg Q6H PRN Administration Anxiety Metformin HCl 1,000 mg 04/02/20 17:00 04/09/20 09:10 Glucophage Xr PO 1,000 mg BID KLEVER Administration Morphine Sulfate 4 mg 04/02/20 03:01 04/06/20 01:42 Morphine Sulfate Inj IV PUSH 4 mg Q2H PRN Administration Pain Rated 7-10 Neomycin/Polymyxin/Bacitracin 1 applic 04/06/20 17:17 04/09/20 09:11 Triple Antibiotic Ointment TOPICAL 1 applic QAM SC
[2020-04-09] MEDS: DEXAMETHASONE 2 MG TABLET PO (12:59)
[2020-04-09] MEDS: DEXAMETHASONE 4 MG TABLET PO (13:00)
[2020-04-09 13:15] LABS: Glucose Point of Care 90 (65-105)
--- NOTE | 2020-04-09 13:16 | P.PNIM_ITS ---
Progress Note: A&P Assessment and Plan (1) COVID-19: Code(s): U07.1 - COVID-19 Status: Acute Assessment and Plan: Patient tested positive for COVID-19 on 03/27/2020. He was initiated on azithromycin and hydroxychloroquine on 04/01/2020 by PCP. His chest x-ray reveals bilateral airspace disease consistent with infectious process with new infiltrates compared to CXR on 03/27/20. He has been febrile with Tmax 37.6. He is maintaining adequate oxygen saturation on 2L O2. Serial CXR demonstrate progression of diffuse lung disease. * Continue isolation precautions stop ceftriaxone today 04/09 * Azithromycin discontinued on 04/06. Patient completed 6 doses * Hydroxychloroquine discontinued on 04/02/20. Patient had 1 dose as an outpatient. QT prolonged * Continue supplemental O2 as needed with goal saturation >92%. Wean to goal.steroid started today for hypoxia from ID * Continue supportive care with albuterol inhaler, guaifenesin/DM, cornet, and acetaminophen as needed for fever * Continue to trend CRP and acute phase reactants. Acute phase reactants trending downward again today. * Continue to monitor chest x-ray (2) Pneumonia: Code(s): J18.9 - Pneumonia, unspecified organism Status: Acute Assessment and Plan: CXR has new infiltrates 04/08 compared to prior X-ray on 03/27/20. * Repeat sputum culture demonstrates mixed bacterial terri without white blood cells. Initial sputum culture was not performed given unacceptable stable * Preliminary blood cultures reveal NGTD. * Urine pneumococcal antigen and Legionella antigen was not detected * MRSA culture is negative. * Supportive care as above (3) Sepsis: Code(s): A41.9 - Sepsis, unspecified organism Status: Acute Assessment and Plan: Patient met criteria for sepsis based on fever and tachycardia with suspected source of infection being pulmonary. No leukocytosis. Lactic was initially elevated at 2.7 but is now WNL. * Continue to monitor vitals and labs closely * Blood cultures with NGTD. (4) Hyponatremia: Code(s): E87.1 - Hypo-osmolality and hyponatremia Status: Acute Assessment and Plan: Patient has had mild hyponatremia which has been relatively stable ranging from 129-134. He is asymptomatic. Urine sodium is 55. Sodium is 135 today. * Continue to monitor sodium levels * Will make every effort to avoid IV fluids given patients risk for fluid overload with lung disease (5) Type 2 diabetes mellitus with hyperglycemia: Qualifiers: Diabetes mellitus rodent exterminator insulin use: without custodial use Qualified Code(s): E11.65 - Type 2 diabetes mellitus with hyperglycemia Code(s): E11.65 - Type 2 diabetes mellitus with hyperglycemia Status: Acute Assessment and Plan: Patient reports noncompliance with medication as well as poor diet and lifestyle choices. Updated hemoglobin A1c is 9.7. His metformin was recently increased by PCP. Blood sugars have ranged from approximately 150-250 during his stay and appear to be improving. Blood sugar was 114. * Continue Accu-Cheks ACHS, high dose sliding scale, and hypoglycemia protocol * Continue metformin and Lantus * Patient requested evaluation from galvanizer and CDE, which were completed via phone given he is Covid positive. He may benefit from outpatient Diabetes Education. * watch closely now that steroids are added (6) Benign essential hypertension: Code(s): I10 - Essential (primary) hypertension Status: Acute Assess
--- NOTE | 2020-04-09 13:16 | PM.IMPN ---
Progress Note: A&P Assessment and Plan (1) COVID-19: Code(s): U07.1 - COVID-19 Status: Acute Assessment and Plan: Patient tested positive for COVID-19 on 03/27/2020. He was initiated on azithromycin and hydroxychloroquine on 04/01/2020 by PCP. His chest x-ray reveals bilateral airspace disease consistent with infectious process with new infiltrates compared to CXR on 03/27/20. He has been febrile with Tmax 37.6. He is maintaining adequate oxygen saturation on 2L O2. Serial CXR demonstrate progression of diffuse lung disease. Continue isolation precautions stop ceftriaxone today 04/09 Azithromycin discontinued on 04/06. Patient completed 6 doses Hydroxychloroquine discontinued on 04/02/20. Patient had 1 dose as an outpatient. QT prolonged Continue supplemental O2 as needed with goal saturation >92%. Wean to goal.steroid started today for hypoxia from ID Continue supportive care with albuterol inhaler, guaifenesin/DM, cornet, and acetaminophen as needed for fever Continue to trend CRP and acute phase reactants. Acute phase reactants trending downward again today. Continue to monitor chest x-ray (2) Pneumonia: Code(s): J18.9 - Pneumonia, unspecified organism Status: Acute Assessment and Plan: CXR has new infiltrates 04/08 compared to prior X-ray on 03/27/20. Repeat sputum culture demonstrates mixed bacterial terri without white blood cells. Initial sputum culture was not performed given unacceptable stable Preliminary blood cultures reveal NGTD. Urine pneumococcal antigen and Legionella antigen was not detected MRSA culture is negative. Supportive care as above (3) Sepsis: Code(s): A41.9 - Sepsis, unspecified organism Status: Acute Assessment and Plan: Patient met criteria for sepsis based on fever and tachycardia with suspected source of infection being pulmonary. No leukocytosis. Lactic was initially elevated at 2.7 but is now WNL. Continue to monitor vitals and labs closely Blood cultures with NGTD. (4) Hyponatremia: Code(s): E87.1 - Hypo-osmolality and hyponatremia Status: Acute Assessment and Plan: Patient has had mild hyponatremia which has been relatively stable ranging from 129-134. He is asymptomatic. Urine sodium is 55. Sodium is 135 today. Continue to monitor sodium levels Will make every effort to avoid IV fluids given patients risk for fluid overload with lung disease (5) Type 2 diabetes mellitus with hyperglycemia: Qualifiers: Diabetes mellitus bed bug exterminator insulin use: without [place] [facility] use Qualified Code(s): E11.65 - Type 2 diabetes mellitus with hyperglycemia Code(s): E11.65 - Type 2 diabetes mellitus with hyperglycemia Status: Acute Assessment and Plan: Patient reports noncompliance with medication as well as poor diet and lifestyle choices. Updated hemoglobin A1c is 9.7. His metformin was recently increased by PCP. Blood sugars have ranged from approximately 150-250 during his stay and appear to be improving. Blood sugar was 114. Continue Accu-Cheks ACHS, high dose sliding scale, and hypoglycemia protocol Continue metformin and Lantus Patient requested evaluation from nuclear weapons custodian and CDE, which were completed via phone given he is Covid positive. He may benefit from outpatient Diabetes Education. watch closely now that steroids are added (6) Benign essential hypertension: Code(s): I10 - Essential (primary) hypertension Status: Acute Assessment and Plan: Blood pressures have been elevated during his stay but improving with additional agent. Blood pressure is elevated at 160 1/70 this morning prior to administration of antihypertensives. Continue lisinopril and amlodipine. Continue to monitor blood pressure closely. (7) Anxiety: Code(s): F41.9 - Anxiety disorder, unspecified Status: Acute Assessment and Plan
[2020-04-09] MEDS: GUAIFENESIN/DEXTROMETHORPHAN 10 ML UDC PO (17:28)
--- NOTE | 2020-04-09 17:31 | CONS_ITS ---
DATE OF CONSULTATION: 04/09/2020 REASON FOR CONSULTATION: COVID pneumonia. HISTORY OF PRESENT ILLNESS: The patient is a 54-year-old male with diabetes mellitus and he also reports ADD. He was in his usual state of health until with shortness of breath and fatigue of approximately one-week duration. He had been tested previously positive on April 23 for novel [place] virus. The patient had been exposed to his niece on the prior weekend who has since tested positive. His is also tested positive, though has not been hospitalized. He also has 2 children who have been healthy. His temperature at home up to 38.9, nausea and abdominal pain. He was given hydroxychloroquine and azithromycin by his primary care physician and with the patient's insistence, the medications were continued here. He desaturated down to 89% on April 03 and has been on oxygen at 2 L since then, consultation requested today. He has been on ceftriaxone also. ALLERGIES: NONE PERTINENT. HABITS: No tobacco. No alcohol. No illicit drugs. PRESENT MEDICATIONS: List reviewed. No immunosuppressants. PAST MEDICAL HISTORY: Shoulder, right knee surgery, also cholecystectomy appendectomy, has known type 2 diabetes mellitus, ADD, sleep apnea, obesity, hyperlipidemia, GERD, hypertension, Dixon's esophagus, and back pain. REVIEW OF SYSTEMS: Constitutional, endocrine, GI, respiratory, and skin otherwise negative. FAMILY HISTORY: Not pertinent to his present illness. 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 PHYSICAL EXAMINATION: GENERAL: Middle-age male appears actual age. VITAL SIGNS: No respiratory distress on 2 L, 96%, 155/92, 89, 14. On the , he had T-max of 38.4 and on arrival, 38.1 with a T-max overall during this hospital stay 38.9. SKIN: No rashes, warm and dry. EENT: The conjunctivae are normal. The oropharynx, oral mucosa normal. Nares are open. He has no paranasal sinus erythema, edema, or tenderness. NODES: No axillary or cervical adenopathy. NECK: Without meningismus or mass. LUNGS: Clear to auscultation and percussion. CHEST: Equal expansion. Normal AP diameter. CARDIAC: Regular rate and rhythm. No murmur, gallop, or rub. Pulses are 2+. ABDOMEN: Nontender, soft. No organomegaly. No masses. EXTREMITIES: Without clubbing, cyanosis, or edema. LABORATORY DATA: His COVID assays as above. Chest X-ray with bilateral diffuse lung infiltrates. His white count 5.6, hemoglobin 12.7, platelets are 371. Sodium 134, electrolytes otherwise normal. Accu-Cheks variable 117 of 206. Transaminases are 3 times normal. LDH 736. CRP 8.7. His Legionella urine antigen was not detected. His urine pneumococcal antigens same. ASSESSMENT: 1. Fever and hypoxemia due to viral pneumonia in turn due to COVID-19 infection. Other causes of fever are unlikely including bacterial pneumonia, bacterial infections elsewhere or other viral infections. 2. Diabetes mellitus. 3. Attention deficit disorder. RECOMMENDATIONS: 1. Based upon a new study released today, we will begin dexamethasone 6 mg daily x10 days. 2. Close monitoring of his blood sugars over time. 3. I believe this will benefit him more than Remdesivir. I would not use the two in combination unless further clinical information becomes available. 4. Respiratory support. Thank you very much for asking me see him. DMITRY ALSTON M.D. PROJECT RESERVOIR ENGINEER PROJECT RESERVOIR ENGINEER D I MT: Arsalan BLACKMAN
[2020-04-09 19:26] LABS: Glucose Point of Care 193 (65-105)
--- NOTE | 2020-04-09 20:20 | PC.NURSE ---
spoke with to keep her informed [id number]
[2020-04-09] MEDS: INSULIN GLARGINE (*BKC) 100 UNITS/ML 20 UNITS SUB-Q (22:35)
[2020-04-09 22:49] LABS: Glucose Point of Care 261 (65-105)
[2020-04-10 02:00] VITALS: BP 123/69; PULSE 80; RESP 18; TEMP 36.8; O2SAT 92
[2020-04-10 06:00] VITALS: BP 154/94; PULSE 67; RESP 20; TEMP 37.1; O2SAT 92
[2020-04-10 06:56] LABS: Alanine Aminotransferase 102 U/L (4-50); Albumin Level 3.8 g/dL (3.5-5.1); Alkaline Phosphatase 77 U/L (38-126); Aspartate Amino Transferase 72 U/L (17-59); Bilirubin,Total 0.3 mg/dL (0.2-1.3); Blood Urea Nitrogen 11 mg/dL (9-20); CRP 4.9 mg/dL (<1.0); Calcium 9.1 mg/dL (8.4-10.2); Carbon Dioxide 26 mmol/L (22-30); Chloride 100 mmol/L (98-107); Estimated CRCL calculation 168 ml/min; Estimated Glomerular Filt Rate > 60; Glucose 213 mg/dL (75-110); Lactate Dehydrogenase 710 U/L (313-618); Potassium 4.4 mmol/L (3.4-5.0); Sodium 134 mmol/L (137-145)
[2020-04-10] MEDS: ALBUTEROL SULFATE (*SP) INHALER 2 PUFF INHALATION ×4 (08:32→17:18)
[2020-04-10 08:58] LABS: Glucose Point of Care 149 (65-105)
[2020-04-10] MEDS: DEXAMETHASONE 4 MG TABLET PO (09:30)
[2020-04-10] MEDS: lisinopriL 20 MG TABLET 40 MG PO (09:30)
[2020-04-10] MEDS: AMLODIPINE BESYLATE 5 MG TABLET PO (09:30)
[2020-04-10] MEDS: metFORMIN HCL XR 500 MG TAB.SR.24H 1000 MG PO (09:30)
[2020-04-10] MEDS: FAMOTIDINE 20 MG/2 ML VIAL IV PUSH (09:30)
[2020-04-10] MEDS: ENOXAPARIN 40 MG/0.4 ML SYRINGE SUB-Q (09:31)
[2020-04-10] MEDS: DEXAMETHASONE 2 MG TABLET PO (09:31)
[2020-04-10] MEDS: NEOMYCIN/POLYMYXIN/BACITRACIN OINTMENT 15 GM TUBE 1 APPLIC TOPICAL (09:32)
[2020-04-10 09:39] VITALS: O2SAT 94
[2020-04-10 10:00] VITALS: BP 147/81; PULSE 90; RESP 20; TEMP 36.6; O2SAT 100
--- NOTE | 2020-04-10 12:17 | PCNWS ---
Weekly nutritional screen. Patient is tolerating current diet with adequate intake. No weight loss reported. No nutritional needs at this time.
[2020-04-10] MEDS: INSULIN ASPART (*BKC) 100 UNITS/ML SUB-Q (12:50)
[2020-04-10 13:20] LABS: Glucose Point of Care 285 (65-105)
[2020-04-10 14:00] VITALS: BP 167/94; PULSE 93; RESP 20; TEMP 36.7; O2SAT 100
--- NOTE | 2020-04-10 18:36 | PC.NURSE ---
When I went to discharge patient, I noticed he had a home med avionics engineer the pt belonging sheet locked in med closet in room . I took the med closet marti with me. I went into the room and tried to unlock the door, but the cabinet was already unlocked. The meds were not there. I asked the pt where the meds were. Pt stated he had them and pointed to his bag. He told me that had he known his home meds were there he would have taken them sooner. I said what meds do you have with you. He said the plaquenil. He then shared he started taking them three days ago . Notified Dr. Jj pt had been taking the plaquenil for past three days. No new orders received and no change to discharge planning.
--- NOTE | 2020-04-11 18:03 | PM.DS ---
DS: Admitting Diagnosis Admitting Diagnosis Admitting Diagnosis: COVID-19 DS: Discharge Diagnosis Discharge Diagnosis (1) COVID-19: Code(s): U07.1 - COVID-19 Status: Acute Assessment and Plan: Patient tested positive for COVID-19 on 03/27/2020. He was initiated on azithromycin and hydroxychloroquine on 04/01/2020 by PCP. His chest x-ray reveals bilateral airspace disease consistent with infectious process with new infiltrates compared to CXR on 03/27/20. He has been febrile with Tmax 37.6. He is maintaining adequate oxygen saturation on 2L O2. Serial CXR demonstrate progression of diffuse lung disease. stop ceftriaxone today 04/09 Azithromycin discontinued on 04/06. Patient completed 6 doses Hydroxychloroquine discontinued on 04/02/20. Patient had 1 dose as an outpatient. QT prolonged .steroid started today for hypoxia from ID, dexamethasone 6 mg daily for 10 days Continued supportive care with albuterol inhaler, guaifenesin/DM, cornet, and acetaminophen as needed for fever CRP and acute phase reactants. Acute phase reactants trending downward each day. By discharge he was sat 100% on room air and feeling much better (2) Pneumonia: Code(s): J18.9 - Pneumonia, unspecified organism Status: Acute Assessment and Plan: CXR has new infiltrates 04/08 compared to prior X-ray on 03/27/20. Repeat sputum culture demonstrates mixed bacterial terri without white blood cells. Initial sputum culture was not performed given unacceptable stable Preliminary blood cultures reveal NGTD. Urine pneumococcal antigen and Legionella antigen was not detected MRSA culture is negative. Supportive care as above antibiotics were discontinued and will continue dexamethasone on discharge for 6 more days (3) Sepsis: Code(s): A41.9 - Sepsis, unspecified organism Status: Acute Assessment and Plan: Patient met criteria for sepsis based on fever and tachycardia with suspected source of infection being pulmonary. No leukocytosis. Lactic was initially elevated at 2.7 but is now WNL. Blood cultures with NGTD. (4) Hyponatremia: Code(s): E87.1 - Hypo-osmolality and hyponatremia Status: Acute Assessment and Plan: Patient has had mild hyponatremia which has been relatively stable ranging from 129-134. He is asymptomatic. Urine sodium is 55. Sodium is 135 today. Sodium 134 the day of discharge (5) Type 2 diabetes mellitus with hyperglycemia: Qualifiers: Diabetes mellitus record tabulating clerk insulin use: without record tabulating clerk use Qualified Code(s): E11.65 - Type 2 diabetes mellitus with hyperglycemia Code(s): E11.65 - Type 2 diabetes mellitus with hyperglycemia Status: Acute Assessment and Plan: Patient reports noncompliance with medication as well as poor diet and lifestyle choices. Updated hemoglobin A1c is 9.7. His metformin was recently increased by PCP. Blood sugars have ranged from approximately 150-250 during his stay and appear to be improving. Continue metformin and Lantus with sliding scale while inpatient Patient requested evaluation from head cd reactor operator and CDE, which were completed via phone given he is Covid positive. He may benefit from outpatient Diabetes Education. Patient was instructed to monitor to sugar more closely on discharge since he will be on steroids for short course (6) Benign essential hypertension: Code(s): I10 - Essential (primary) hypertension Status: Acute Assessment and Plan: Blood pressures have been elevated during his stay but improving with addition of amlodipine 5 mg daily . Continue lisinopril and amlodipin on discharge and follow-up with primary care. (7) Anxiety: Code(s): F41.9 - Anxiety disorder, unspecified Status: Acute Assessment and Plan: Patient reports he is anxious about being in the hospital and being away from his family.
== END 2020-04-10 17:55 | disposition home or self-care (01) | DRG 871 ==
LOC: ANHED 04-02 03:01 → ANH3MEDSUR 04-02 03:09
PROVIDERS: Physician Assistant; Admitting Provider Family Medicine; Emergency Provider Emergency Medicine; PCP Family Medicine; Visit Provider Internal Medicine
DX: A41.89 Other specified sepsis (principal); U07.1 COVID-19; J12.89 Other viral pneumonia; E87.1 Hypo-osmolality and hyponatremia; Z68.41 Body mass index [BMI] 40.0-44.9, adult; E66.01 Morbid (severe) obesity due to excess calories; E11.65 Type 2 diabetes mellitus with hyperglycemia; Z91.14 Patient's other noncompliance with medication regimen; I10 Essential (primary) hypertension; F41.9 Anxiety disorder, unspecified; K22.70 Barrett's esophagus without dysplasia; K21.9 Gastro-esophageal reflux disease without esophagitis; E78.2 Mixed hyperlipidemia; M54.9 Dorsalgia, unspecified; F90.9 Attention-deficit hyperactivity disorder, unspecified type; G47.30 Sleep apnea, unspecified; Z79.84 Long term (current) use of oral hypoglycemic drugs; Z79.899 Other long term (current) drug therapy
CPT/HCPCS: 36415; 71045; 80053; 82550; 82570; 82728; 83036; 83605; 83615; 84300; 85025; 85027; 85380; 86140; 87040; 87070; 87081; 87205; 87449; 87899; 93005; 94640; 94667; 94668; 96360; 99285; A9270; G0378; J0131; J0456; J0696; J1650; J1815; J2270; J2405; J7030; J8540

== ENCOUNTER 2020-05-16 11:50 | Outpatient (CLI) | payer OTHER, SELFPAY ==
--- NOTE | 2020-05-22 11:19 | SLEEP_ITS ---
Home Sleep Test DATE OF STUDY: 05/16/2020 ORDERING PHYSICIAN: Jose Ramon Ernst M.D. REASON FOR THIS STUDY: Loud snoring, hypersomnia. HISTORY: This patient is a 54-year-old man, 5 feet 11 inches tall weighing 285 pounds with a body mass index of 39.7. He states that he has gained weight over the years and the heavier he is, the worse he snores. His has witnessed him stopping breathing. He never feels rested on waking. He has despite to stay awake while driving. He is always out of energy. He yawns easily. This has been going on for several years. There is a family history of sleep problems. He occasionally awakens at night with heartburn, belching, or coughing. He rarely awakens from sleep feeling short of breath. He rarely has trouble sleeping with a cold. He rarely gasps for breath at night. He occasionally has witnessed breathing problems observed by others. He frequently sweats excessively at night. He never notices his heart pounding or beating irregularly during the night. He frequently falls asleep during the day occasionally involuntarily, rarely while driving and rarely during physical effort. He does not have loss of muscle tone with strong emotion. He frequently has daytime difficulty due to excessive sleepiness. He does not feel paralyzed on waking or falling asleep. He rarely has vivid dreamlike scenes upon awakening or falling asleep. He does not have nightmares. He occasionally remembers his dreams. He constantly has racing thoughts. He does not have feelings of sadness or depression. He rarely feels anxious. He frequently has muscular tension. He occasionally notices parts of his body jerking. He does not kick at night. He occasionally has crawling and aching feelings in his legs and occasionally has leg pain at night. He denies morning jaw pain and denies grinding his teeth at night. He frequently is bothered by pain during the day, occasionally he is awakened by pain at night. He frequently wakes up feeling stiff in the morning with sore achy muscles. He frequently wakes up with pain in the neck and spine joints. He has fatigue, sexual problems, memory problems, concentration difficulties. Normal bedtime is 9:30 p.m., taking 10 minutes to fall asleep typically waking 3 times at night for about 5 minutes. During this time, he will go to the bathroom to urinate. He wakes in the morning between 5 and 6 a.m. 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 He does not take naps. A short nap is not refreshing. He is usually drowsy in the morning for 3 hours or longer. He feels better in the evening than other times a day. MEDICAL COMORBIDITIES: 1. Hypertension. 2. Diabetes. 3. Recent COVID infection, positive on March 27, 2020, with some residual shortness of breath, on albuterol. 4. Back pain. 5. Anemia. 6. ADHD. 7. GERD. 8. Hyperlipidemia. 9. Obesity. MEDICATIONS: 1. Metformin 500 mg extended release 2 tablets b.i.d. 2. Albuterol rescue inhaler 2 puffs q.4 hours p.r.n. shortness of breath. 3. Amlodipine 5 mg a day. 4. Lansoprazole delayed release 30 mg daily. 5. Lisinopril 40 mg a day. 6. Naprosyn 500 mg p.o. b.i.d. HABITS: Never smoked tobacco. Caffeine, 2 beverages a day. No alcohol or recreational drugs. DESCRIPTION OF THE STUDY: On the Picher Sleepiness Scale, his score is 10. This was conducted as an unattended type 3 portable home sleep test with 4 channel monitoring including respiratory effort channel, snoring channel, oxygen saturation channel, and heart rate channel. This study was scored using [facility] guidelines. Duration of the study is 8 hours 11 minutes. The apnea-hypopnea index is elevated at 54. Oxygen desaturation index is 49. Lowest desaturation is 59%. Average saturation 91%, both of these are low.
== END 2020-05-16 11:51 | disposition home or self-care (01) ==
LOC: ANHCSM 11:50
PROVIDERS: PCP Family Medicine; Visit Provider Family Medicine
DX: G47.33 Obstructive sleep apnea (adult) (pediatric) (principal)
CPT/HCPCS: 95806

== ENCOUNTER → 2020-09-10 11:13 | Outpatient (CLI) | payer OTHER, SELFPAY ==
--- NOTE | ~2020-09-10 | XR_ITS ---
XR ribs RT 2V w CXR 2V DATE: 09/10/2020 11:31 INDICATION: Fall onto a 4 x 4 post. Right chest/pleuritic pain. TECHNIQUE: PA and lateral chest. 3 views of the right ribs. COMPARISON: 04/06/2020 portable AP chest FINDINGS: Normal heart size. No hilar or mediastinal enlargement. No pulmonary infiltrate or consolid ation, pleural effusion or pulmonary vascular congestion or pneumothorax. IMPRESSION: No active cardiopulmonary disease No right rib fracture is evident Reviewed, dictated and finalized at location B. PRESERVATION SCIENTIST
== END ==
PROVIDERS: PCP Family Medicine; Visit Provider Family Medicine
DX: R07.81 Pleurodynia (principal)
CPT/HCPCS: 71046; 71100

== ENCOUNTER 2020-09-17 12:30 | Outpatient (RCR) | payer OTHER, SELFPAY ==
[2020-07-16 14:58] VITALS: BMI 39.9
== END 2020-10-03 12:50 | disposition home or self-care (01) ==
LOC: ANHDMC 12:30
PROVIDERS: PCP Family Medicine; Visit Provider Physician Assistant
DX: E11.65 Type 2 diabetes mellitus with hyperglycemia (principal); Z71.3 Dietary counseling and surveillance; Z91.19 Patient's noncompliance with other medical treatment and regimen
CPT/HCPCS: 97802

== ENCOUNTER → 2022-03-25 17:01 | Outpatient (CLI) | payer OTHER, SELFPAY ==
--- NOTE | ~2022-03-25 | XR_ITS ---
XR knee LT min 4V DATE: 03/25/2022 17:25 INDICATION: Left medial knee pain; no known injury. TECHNIQUE: 4 views including crosstable lateral COMPARISON: None FINDINGS: Mild superior pole patellar enthesopathy at quadriceps tendon insertion. There is mild loss of medial compartment joint space height. No fracture or dislocation, periosteal reaction or bone destruction. No radiopaque intra-articular lo ose body or chondrocalcinosis. IMPRESSION: Mild loss of medial compartment joint space height Superior pole patellar enthesopathy Reviewed, dictated and finalized at location A.
== END ==
PROVIDERS: PCP Family Medicine; Visit Provider Family Medicine
DX: M25.562 Pain in left knee (principal)
CPT/HCPCS: 73564

== ENCOUNTER 2023-06-19 07:48 | Emergency (ER) | payer OTHER, SELFPAY ==
--- NOTE | ~2023-06-19 | CT_ITS ---
EXAMINATION: CT lumbar spine wo con DATE: 06/19/2023 09:21 INDICATION: Nontraumatic low back pain TECHNIQUE: Computed tomography (CT) of the lumbar spine was performed without intravenous contrast. A utomated exposure control and iterative reconstruction technique were employed. The dose-length produ ct was 1357.22 mGy-cm. COMPARISON: None FINDINGS: Alignment is normal. Vertebral body heights are normal. Mild disc height loss and mild degenerative e ndplate changes at T10-T11 through T12-L1. Lumbar disc heights are normal. Mild disc bulges with mild central canal stenosis at L3-L4 and with negligible central canal stenosis at L4-L5 or L5-S1. Multil evel bilateral mild facet osteoarthritis throughout the lumbar and visualized lower thoracic spine. M ild neural foraminal stenosis resulting from the disc bulges bilaterally at L3-L4 and L4-L5. Paravert ebral soft tissues are unremarkable. Mild bilateral sacroiliac osteoarthritis with ankylosis across t he anterior and superior left sacroiliac joint. IMPRESSION: 1. Mild lower thoracic and minimal lumbar spondylosis. 2. Mild bilateral sacroiliac osteoarthritis with developing ankylosis on the left. Reviewed, dictated and finalized at location A. IMPRESSION: 1. Mild lower thoracic and minimal lumbar spondylosis. 2. Mild bilateral sacroiliac osteoarthritis with developing ankylosis on the le ft.
[2023-06-19 07:59] VITALS: BP 143/87; PULSE 81; RESP 16; TEMP 36.6; O2SAT 96
--- NOTE | 2023-06-19 08:09 | ED.BACK ---
HPI - Back Pain/Injury General Chief Complaint: Back Pain/Injury Stated Complaint: back pain Time Seen by Provider: 06/19/23 08:08 Source: patient Mode of arrival: ambulatory Limitations: no limitations History of Present Illness HPI Narrative: 57 years old white male brought to the emergency room by private car with his complaining of lower back pain, work-up with it yesterday morning. 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 Patient denies any different activity compared to his regular daily activities. He denies any fever, chills, nausea, vomiting, radiation of pain. Pain worse with any movement, better sitting up. History of diabetes, hypertension, and sleep apnea. Related Data Allergies Allergy/AdvReac Type Severity Reaction Status Date / Time mold Allergy Mild Other Verified 06/19/23 08:05 Cultivated Oat Pollen Allergy Intermediate Other Uncoded 06/19/23 08:05 Review of Systems Review of Systems: All systems reviewed & are unremarkable except as noted in HPI and below PMFSH Past Medical History Medical History Acute pain of left knee X-ray of the left knee revealed decreased medial joint space 03/25/2022. ADHD Adhesive capsulitis of left shoulder Anemia Anxiety Back pain Barretts esophagus Benign essential hypertension Bilateral chronic knee pain BMI 34.0-34.9,adult BMI 37.0-37.9, adult BMI 38.0-38.9,adult Chest pain COVID-19 virus detected Elevated liver enzymes liver enzymes normal 04/11/2022 with GGT 19, AST 20, ALT 30. AST 23, ALT 30 on 12/08/2022. Encounter for prostate cancer screening PSA 2.7 on 04/11/2022. PSA 1.6 on 06/12/2023. Encounter for screening for other viral diseases Encounter for wellness examination in adult Hemoglobin A1c less than 7.0% 01/18/21 A1C = 6.1 History of Dixon's esophagus Medical non-compliance Mixed hyperlipidemia Total cholesterol 167, triglycerides 115, HDL 33 and LDL 113 on 04/11/2022. Cholesterol 149, triglycerides 131, HDL 29, LDL 96 on 12/08/2022. Cholesterol 196, triglycerides 744, HDL 25, LDL 60 on 06/12/2023. Noncompliance Obesity (BMI 30-39.9) Obesity (BMI 35.0-39.9 without comorbidity) Obstructive sleep apnea on CPAP Pneumonia Rib pain on right side Right foot pain Sepsis Severe obesity (BMI >= 40) Shortness of breath Type 2 diabetes mellitus with hyperglycemia fasting glucose 393 with hemoglobin A1c 11.6 With urine microalbumin ratio of 59 on 06/12/2023. Type 2 diabetes mellitus without complication, without long-term current use of insulin Fasting glucose 114 with hemoglobin A1c 7.1 With urine microalbumin ratio of 25 on 04/11/2022. Glucose 149 with hemoglobin A1c 7.3 on 12/08/2022. Urinary frequency Viral syndrome Surgical History Surgical History History of appendectomy History of cholecystectomy History of right knee surgery History of shoulder surgery Bilateral Family History Family History Grandparent Cerebrovascular accident Father Family history of dementia Acute myocardial infarction Mother No problems noted. Social History Social History Social History: Mr. Reid lives at home with his and his 2 adult children. 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 Smoking status: Never smoker Alcohol intake: former Alcohol use details: No alcohol use in approx. 30 years Substance use: never Substance use type: does not use Lack of Transportation: No Lack of Food: Never True Current Housing: I Have Housing Concerned About Future Housing: No Difficulty Paying Gas/Electric Bills: No Difficulty Paying for Meds: No Currently Unemployed: No Education: [employer]
[2023-06-19] MEDS: ONDANSETRON HCL ODT 4 MG TABLET PO (08:23)
[2023-06-19] MEDS: IBUPROFEN 600 MG TABLET PO (08:23)
[2023-06-19] MEDS: diazePAM (*CRX) 5 MG TABLET PO (08:24)
[2023-06-19] MEDS: HYDROmorphone HCL INJ (*CRX) 1 MG/ML SYR IM (08:25)
[2023-06-19 09:26] LABS: Appearance Urine Clear (Clear); Bacteria Urine None Seen /hpf; Bilirubin Urine Negative (Negative); Blood Urine Negative (Negative); Color Urine Yellow (Yellow); Glucose Urine UA 2+ mg/dL (Negative); Ketones Urine Trace mg/dL (Negative); Leukocyte Esterase Ur Negative LEU/UL (Negative); Nitrate Urine Negative (Negative); Protein Urine Trace mg/dL (Negative); RBC Urine 0-2 /hpf (0-2); Specific Grav Ur 1.034 (1.001-1.035); Squamous Epithelial Cell Urine None seen /hpf (Few); WBC Urine 0-5 /hpf
[2023-06-19 09:45] LABS: Add Urine Microscopic? YES
[2023-06-19 10:37] VITALS: BP 139/94; PULSE 82; RESP 18; O2SAT 96
[2023-06-19] MEDS: HYDROmorphone HCL INJ (*CRX) 1 MG/ML SYR 0.5 MG IM (11:08)
== END 2023-06-19 11:11 | disposition home or self-care (01) ==
PROVIDERS: Emergency Provider Emergency Medicine; PCP Family Medicine
DX: M54.50 Low back pain, unspecified (principal); E78.2 Mixed hyperlipidemia; E11.9 Type 2 diabetes mellitus without complications
CPT/HCPCS: 72131; 81001; 96372; 99284; A9270; J1170

== ENCOUNTER 2023-08-05 15:02 | Emergency (ER) | payer OTHER, SELFPAY ==
--- NOTE | ~2023-08-05 | XR_ITS ---
EXAMINATION: XR hand LT min 3V DATE: 08/05/2023 15:53 INDICATION: Left hand pain. TECHNIQUE: 3 views of left hand were obtained. COMPARISON: None. FINDINGS: Bone alignment is normal. No fracture. There is mild osteoarthritis of first carpometacarpa l joint and second and third distal interphalangeal joints. IMPRESSION: 1. Mild polyarticular osteoarthritis. Reviewed, dictated and finalized at location A.
[2023-08-05 15:39] VITALS: BP 169/106; PULSE 90; RESP 16; TEMP 36.9; O2SAT 99
--- NOTE | 2023-08-05 18:07 | ED.GENADULT ---
HPI - General Adult General Chief complaint: Extremity Injury, Upper Stated complaint: left hand injury Time Seen by Provider: 08/05/23 17:50 History of Present Illness HPI narrative: Patient is a 57-year-old male who presents to the emergency department this afternoon complaining of left hand pain. Patient states that he was not working and was trying to pull on aborter from above when the weight of it landed on his left ring and pinky finger. Patient states that ever since then he has been having some swelling to the lateral portion of his left hand. Patient states that he heard a pop and thought that may be one of his fingers dislocated and tried to put it back in place. Patient did not hear a pop but due to the swelling and pain he decided to come to the emergency department for further evaluation. Patient is neurovascularly intact. Patient denies any chest pain, shortness of breath, nausea, vomiting, abdominal pain, dysuria, hematuria, constipation, diarrhea, melena, hematochezia, fevers or chills. He also denies any headaches, dizziness, lightheadedness, blurry visions, focal weakness, numbness and or tingling. There are no other modifying, alleviating, or precipitating factors at this time. Related Data Allergies Allergy/AdvReac Type Severity Reaction Status Date / Time mold Allergy Mild Other Verified 08/05/23 17:40 Cultivated Oat Pollen Allergy Intermediate Other Uncoded 06/19/23 08:05 Review of Systems Review of Systems: All systems are reviewed and are negative unless stated otherwise in the HPI. [facility] Past Medical History Medical History Acute pain of left knee X-ray of the left knee revealed decreased medial joint space 03/25/2022. ADHD Adhesive capsulitis of left shoulder Anemia Anxiety Back pain Barretts esophagus Benign essential hypertension Bilateral chronic knee pain BMI 34.0-34.9,adult BMI 37.0-37.9, adult BMI 38.0-38.9,adult Chest pain COVID-19 virus detected Elevated liver enzymes liver enzymes normal 04/11/2022 with GGT 19, AST 20, ALT 30. AST 23, ALT 30 on 12/08/2022. Encounter for prostate cancer screening PSA 2.7 on 04/11/2022. PSA 1.6 on 06/12/2023. Encounter for screening for other viral diseases Encounter for wellness examination in adult Hemoglobin A1c less than 7.0% 01/18/21 A1C = 6.1 History of Dixon's esophagus Medical non-compliance Mixed hyperlipidemia Total cholesterol 167, triglycerides 115, HDL 33 and LDL 113 on 04/11/2022. Cholesterol 149, triglycerides 131, HDL 29, LDL 96 on 12/08/2022. Cholesterol 196, triglycerides 744, HDL 25, LDL 60 on 06/12/2023. Noncompliance Obesity (BMI 30-39.9) Obesity (BMI 35.0-39.9 without comorbidity) Obstructive sleep apnea on CPAP Pneumonia Rib pain on right side Right foot pain Sepsis Severe obesity (BMI >= 40) Shortness of breath Type 2 diabetes mellitus with hyperglycemia fasting glucose 393 with hemoglobin A1c 11.6 With urine microalbumin ratio of 59 on 06/12/2023. Type 2 diabetes mellitus without complication, without long-term current use of insulin Fasting glucose 114 with hemoglobin A1c 7.1 With urine microalbumin ratio of 25 on 04/11/2022. Glucose 149 with hemoglobin A1c 7.3 on 12/08/2022. Urinary frequency Viral syndrome Surgical History Surgical History History of appendectomy History of cholecystectomy History of right knee surgery History of shoulder surgery Bilateral Family History Family History Grandparent Cerebrovascular accident Father Family history of dementia Acute myocardial infarction Mother No problems noted. Social History Social History Social History: Mr. Reid lives at home with his and his 2 adult children. 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 He would l
[2023-08-05] MEDS: IBUPROFEN 400 MG TABLET PO (18:27)
== END 2023-08-05 18:57 | disposition home or self-care (01) ==
PROVIDERS: Emergency Provider Emergency Medicine; PCP Family Medicine
DX: S66.912A Strain of unspecified muscle, fascia and tendon at wrist and hand level, left hand, initial encounter (principal); E11.9 Type 2 diabetes mellitus without complications; E78.2 Mixed hyperlipidemia; E66.01 Morbid (severe) obesity due to excess calories; Z68.37 Body mass index [BMI] 37.0-37.9, adult; K22.70 Barrett's esophagus without dysplasia; G47.33 Obstructive sleep apnea (adult) (pediatric); Z87.01 Personal history of pneumonia (recurrent); Z86.16 Personal history of COVID-19; Z90.49 Acquired absence of other specified parts of digestive tract; Z79.84 Long term (current) use of oral hypoglycemic drugs; Z79.85 Long-term (current) use of injectable non-insulin antidiabetic drugs; W20.8XXA Other cause of strike by thrown, projected or falling object, initial encounter
CPT/HCPCS: 29125; 73130; 99283; A9270

== ENCOUNTER → 2023-12-01 15:16 | Outpatient (CLI) | payer OTHER, SELFPAY ==
--- NOTE | ~2023-12-01 | MR_ITS ---
EXAMINATION: MR knee LT wo con DATE: 12/01/2023 16:06 INDICATION: Left knee pain TECHNIQUE: Magnetic resonance imaging (MRI) of the left knee was performed without intravenous contra st. Sequences included coronal PD-weighted FSE, coronal PD-weighted FS FSE, sagittal T2-weighted FSE , sagittal PD-weighted FS FSE and axial PD weighted fat saturated FSE. COMPARISON: None. FINDINGS: Medial compartment: Complex medial meniscal tear which includes a radial tear plane at the meniscal body, a nodule horizo ntal tear plane extending to near the free edge at the posterior horn and additional longitudinal tea r plane extending to the inferior articular surface at the junction of the body and posterior horn. M ild partial-thickness cartilage loss with some scattered chondral surface regularity along the medial tibial plateau and anterior to central weightbearing medial femoral condyle. Lateral compartment: Lateral meniscus is normal. Mild partial-thickness cartilage loss with relatively smooth chondral billie face along the lateral side of the central to posterior weightbearing lateral femoral condyle. Articu lar cartilage is otherwise normal. Patellofemoral compartment: Mild partial-thickness chondral fissuring at the central aspect of the medial and lateral patellar fa cets. Trochlear cartilage is normal. Ligaments and tendons: Anterior and posterior cruciate ligaments are normal. The medial collateral ligament and fibular adilson ateral ligament complex are normal. Small enthesophytes and mild tendinopathy. Patellar insertion of the distal quadriceps tendon. The patellar tendon is normal. The visualized medial and lateral hamstr ing tendons as well as the iliotibial band are normal. Fluid: Physiologic amount of fluid in the joint space. No loose osteochondral bodies identified. Osseous/other: Normal marrow signal. No fracture or pathologic marrow replacing process. IMPRESSION: 1. Complex medial meniscal tear. 2. Mild tricompartmental osteoarthritis with regions of moderate grade chondromalacia in all 3 compar tments. Reviewed, dictated and finalized at location A. THALENE STILL OPERATOR IMPRESSION: 1. Complex medial meniscal tear. 2. Mild tricompartmental osteoarthritis with regions of moderate grade chondrom alacia in all 3 compartments.
== END ==
PROVIDERS: PCP Family Medicine; Visit Provider Orthopaedic Surgery
DX: S83.232A Complex tear of medial meniscus, current injury, left knee, initial encounter (principal); X58.XXXA Exposure to other specified factors, initial encounter; M17.12 Unilateral primary osteoarthritis, left knee
CPT/HCPCS: 73721

== ENCOUNTER 2023-12-13 08:20 | Outpatient (CLI) | payer OTHER, SELFPAY ==
--- NOTE | 2023-12-13 08:29 | ECG_ITS ---
Measurements Intervals [place] Rate: 88 P: 28 WI: 175 QRS: -18 QRSD: 80 T: 22 QT: 330 QTc: 401 Interpretive Statements SINUS RHYTHM WITH OCCASIONAL SUPRAVENTRICULAR PREMATURE COMPLEXES BASELINE ARTIFACT INFERIOR MYOCARDIAL INFARCTION OF INDETERMINATE AGE ABNORMAL ECG COMPARED TO ECG 04/02/2020 00:11:22 SINUS RHYTHM NOW PRESENT Electronically Signed On 12-13-2023 18:26:01 PRECISION LATHE OPERATOR by Elder Kovacs M.D.
[2023-12-13 09:36] LABS: Anion Gap 6 mmol/L (8-16); Blood Urea Nitrogen 19 mg/dL (9-20); Calcium 9.5 mg/dL (8.4-10.2); Carbon Dioxide 26 mmol/L (22-30); Chloride 104 mmol/L (98-107); Estimated Glomerular Filt Rate > 60; Glucose 164 mg/dL (65-110); Potassium 4.2 mmol/L (3.4-5.0); Sodium 136 mmol/L (137-145)
== END 2023-12-13 08:21 | disposition home or self-care (01) ==
LOC: ANHSURGERY 08:24
PROVIDERS: Anesthesiology; PCP Family Medicine; Visit Provider Orthopaedic Surgery
DX: E11.65 Type 2 diabetes mellitus with hyperglycemia (principal); Z01.818 Encounter for other preprocedural examination; R94.31 Abnormal electrocardiogram [ECG] [EKG]
CPT/HCPCS: 36415; 80048; 93005

== ENCOUNTER 2023-12-20 03:29 | Day surgery (SDC) | payer OTHER, SELFPAY ==
[2023-12-10 08:20] VITALS: BMI 39.0
--- NOTE | 2023-12-10 08:27 | PC.NURSE ---
Addendum entered by Italia Russell RN 12/10/23 09:40: PT TO FOLLOW INSTRUCTIONS FROM DR. CONDE REGARDING IBUPROFEN. Original Note: Report to the Outpatient Waiting Room, entrance under the green pavilion located off [facility], at time 8:00 on date 12/20/23. Planned Procedure Time: 10:00. Time changes happen often and if your time is changed the preop area will call you the afternoon before. - You and your visitor will be asked to self-screen and do not enter if you have any COVID symptoms. - A mask is optional within the hospital at this time. Patients may have clear liquids (water, carbonated beverages, clear teas, apple juice) until 3 hours prior to surgery (7:00) with a maximum of 20 ounces. - No food from midnight until time of surgery Take the following medications with a SIP of water the morning of surgery: INHALER IF NEEDED, AMLODIPINE DO NOT STOP ANY OF YOUR OTHER PRESCRIPTION MEDICATIONS PRIOR TO SURGERY ?EXCEPT THE FOLLOWING Medications to discontinue per physician: N/A Date to take last dose: N/A Please no make-up, nail italian, hairspray, perfume, deodorant, or body powder the day of surgery. No jewelry (including any body piercings) or valuables the day of surgery, leave them at home. Please take a shower or bath the night before, or the morning of, surgery with an antibacterial soap. Wear comfortable, loose fitting clothing. - Jewelry must be removed prior to entering the operating room. Rings and piercings that are not removed may be cut off. - The hospital will not accept responsibility for valuables. - Please leave all valuables, including medications, at home the day of surgery. If you are going home after surgery, a licensed operator and truck driver must drive you home. - NO public transportation without another adult if you receive anesthesia. - We recommend that an adult stay with you for 24 hours following discharge. - We also recommend that you do not drive, make important decision, drink alcoholic beverages, or take any drugs that were not prescribed by your health care provider for at least 24 hours after your discharge time. Follow any additional instructions given to you from your surgeon. If you or anyone in your household have experienced Covid symptoms in the past week, please notify your surgeon or the nurse liaison at the phone number below for possible testing. Telephone instructions given to DWIGHT ARAIZA and asked if any additional questions and then verbalized understanding. Patient advised to call surgeon office or pre surgery nurse liaison [phone] if any additional questions.
[2023-12-20] VITALS (7 sets, daily range): BP systolic 130–164; BP diastolic 73–96; PULSE 68–80; RESP 12–20; TEMP 36.1–36.8; O2SAT 93–100
--- NOTE | 2023-12-20 07:08 | PM.IMHP ---
H&P: HPI History of Present Illness Date/Time: 12/20/23 07:08 Chief Complaint: Patient has meniscal tear LEFT knee. Narrative: Patient has a twisting injury and has catching and locking in the left knee. He has failed conservative treatment any medicine therapy cortisone exercise time. He continues to be symptomatic and has a positive MRI scan would like to consider arthroscopic intervention. Review of Systems Musculoskeletal: Musculoskeletal: Reports arthralgias and Reports joint swelling PMFSH Past Medical History Medical History Acute bronchitis Acute pain of left knee X-ray of the left knee revealed decreased medial joint space 03/25/2022. ADHD Adhesive capsulitis of left shoulder Anemia Anxiety Back pain Barretts esophagus Benign essential hypertension Bilateral chronic knee pain BMI 34.0-34.9,adult BMI 37.0-37.9, adult BMI 38.0-38.9,adult BMI 39.0-39.9,adult Chest pain COVID-19 virus detected Elevated liver enzymes liver enzymes normal 04/11/2022 with GGT 19, AST 20, ALT 30. AST 23, ALT 30 on 12/08/2022. Encounter for prostate cancer screening PSA 2.7 on 04/11/2022. PSA 1.6 on 06/12/2023. Encounter for screening for other viral diseases Encounter for wellness examination in adult Hemoglobin A1c less than 7.0% 01/18/21 A1C = 6.1 History of Dixon's esophagus Left hand pain Medical non-compliance Mixed hyperlipidemia Total cholesterol 167, triglycerides 115, HDL 33 and LDL 113 on 04/11/2022. Cholesterol 149, triglycerides 131, HDL 29, LDL 96 on 12/08/2022. Cholesterol 196, triglycerides 744, HDL 25, LDL 60 on 06/12/2023. Noncompliance Obesity (BMI 30-39.9) Obesity (BMI 35.0-39.9 without comorbidity) Obstructive sleep apnea on CPAP CPAP with nasal mass Pneumonia Rib pain on right side Right foot pain Sepsis Severe obesity (BMI >= 40) Shortness of breath Type 2 diabetes mellitus with hyperglycemia fasting glucose 393 with hemoglobin A1c 11.6 With urine microalbumin ratio of 59 on 06/12/2023. Type 2 diabetes mellitus without complication, without long-term current use of insulin Fasting glucose 114 with hemoglobin A1c 7.1 With urine microalbumin ratio of 25 on 04/11/2022. Glucose 149 with hemoglobin A1c 7.3 on 12/08/2022. Urinary frequency Viral syndrome Surgical History Surgical History History of appendectomy History of cholecystectomy History of right knee surgery History of shoulder surgery Bilateral Family History Family History Grandparent Cerebrovascular accident Father Family history of dementia Acute myocardial infarction Mother No problems noted. Social History Social History Social History: Mr. Reid lives at home with his and his 2 adult children. 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 He would like to be a full code and designates his Melonie ([phone]) as his surrogate decision maker. 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
--- NOTE | 2023-12-20 07:11 | WPDHPUPDATE1 ---
History and Physical Update Update Date/Time: 12/20/23 07:11 History and Physical has been reviewed, including an updated exam of the patient. There are NO changes in the patient's condition. Risks, benefits, and alternatives have been discussed and questions answered. Patient agrees to proceed with procedure.
--- NOTE | 2023-12-20 07:12 | WPDHPUPDATE1 ---
History and Physical Update Update Date/Time: 12/20/23 07:12 History and Physical has been reviewed, including an updated exam of the patient. There are NO changes in the patient's condition. Risks, benefits, and alternatives have been discussed and questions answered. Patient agrees to proceed with procedure.
[2023-12-20] MEDS: LACTATED RINGERS 1,000 ML 30 ML IV CONT (08:45)
[2023-12-20] MEDS: KETOROLAC 15 MG/ML VIAL (*BKC) IV PUSH (09:00)
[2023-12-20] MEDS: ACETAMINOPHEN 500 MG TABLET 1000 MG PO (09:00)
[2023-12-20 09:23] LABS: Glucose Point of Care 126 mg/dl (65-105)
[2023-12-20] MEDS: SCOPOLAMINE 1 MG PATCH 1 PATCH TRANSDERM (09:25)
[2023-12-20] MEDS: ceFAZolin 3 GM/D5W 100 ML 100 ML IVPB (09:26)
--- NOTE | 2023-12-20 09:32 | WPDANESEPPF ---
Anes - Initial Pre Proc Eval Procedure: Operation Date: 12/20/23 10:30 Proposed Procedures p Left Knee Arthroscopy, Partial Meniscectomy - Jesús Samayoa MD Date/Time: 12/20/23 09:32 Surgeon: Jesús Samayoa MD Pre Op Diagnosis: left knee medial meniscal tear Patient Data Age: 58 Gender: M Height: 1.8 m Weight: 127.1 kg Allergies Allergy/AdvReac Type Severity Reaction Status Date / Time mold Allergy Mild Other Verified 12/20/23 09:28 pollen extracts Allergy Unknown Unknown Verified 12/20/23 09:28 Home Medications Medication Instructions Recorded Confirmed Type amlodipine 10 mg tablet 10 mg PO DAILY #90 tabs 12/08/22 12/20/23 Rx lansoprazole 30 mg capsule,delayed 30 mg PO DAILY #90 caps 12/08/22 12/20/23 Rx release lisinopril 40 mg tablet 40 mg PO DAILY #90 tabs 12/08/22 12/20/23 Rx tadalafil 20 mg tablet (Cialis) 20 mg PO DAILY PRN sexual activity 12/08/22 12/20/23 Rx #10 tabs albuterol sulfate 90 mcg/actuation 2 puff inhalation Q4H PRN 04/12/23 12/20/23 Rx aerosol inhaler (ProAir HFA) shortness of breath or wheezing #8.5 grams metformin 500 mg tablet,extended 2,000 mg PO DAILY #360 tabs 06/14/23 12/20/23 Rx release 24 hr ibuprofen 800 mg tablet 800 mg PO TID PRN pain #90 tabs 11/18/23 12/20/23 Rx semaglutide 1 mg/dose (4 mg/3 mL) 1 mg (0.75 mL) subcut WEEKLY #3 mL 11/18/23 12/20/23 Rx subcutaneous pen injector (Ozempic) Laboratory Tests 12/20/23 09:03 POC Capillary Glucose 126 H mg/dl (65-105) Patient hx anesthesia problems: none Family hx anesthesia problems: none Results Review: All pre-operative results and documents have been reviewed as part of the pre-operative evaluation. [facility] Past Medical History Medical History Acute bronchitis Acute pain of left knee X-ray of the left knee revealed decreased medial joint space 03/25/2022. ADHD Adhesive capsulitis of left shoulder Anemia Anxiety Back pain Barretts esophagus Benign essential hypertension Bilateral chronic knee pain BMI 34.0-34.9,adult BMI 37.0-37.9, adult BMI 38.0-38.9,adult BMI 39.0-39.9,adult Chest pain COVID-19 virus detected Elevated liver enzymes liver enzymes normal 04/11/2022 with GGT 19, AST 20, ALT 30. AST 23, ALT 30 on 12/08/2022. Encounter for prostate cancer screening PSA 2.7 on 04/11/2022. PSA 1.6 on 06/12/2023. Encounter for screening for other viral diseases Encounter for wellness examination in adult Hemoglobin A1c less than 7.0% 01/18/21 A1C = 6.1 History of Dixon's esophagus Left hand pain Medical non-compliance Mixed hyperlipidemia Total cholesterol 167, triglycerides 115, HDL 33 and LDL 113 on 04/11/2022. Cholesterol 149, triglycerides 131, HDL 29, LDL 96 on 12/08/2022. Cholesterol 196, triglycerides 744, HDL 25, LDL 60 on 06/12/2023. Noncompliance Obesity (BMI 30-39.9) Obesity (BMI 35.0-39.9 without comorbidity) Obstructive sleep apnea on CPAP CPAP with nasal mass Pneumonia Rib pain on right side Right foot pain Sepsis Severe obesity (BMI >= 40) Shortness of breath Type 2 diabetes mellitus with hyperglycemia fasting glucose 393 with hemoglobin A1c 11.6 With urine microalbumin ratio of 59 on 06/12/2023. Type 2 diabetes mellitus without complication, without long-term current use of insulin Fasting glucose 114 with hemoglobin A1c 7.1 With urine microalbumin ratio of 25 on 04/11/2022. Glucose 149 with hemoglobin A1c 7.3 on 12/08/2022. Urinary frequency Viral syndrome Surgical History Surgical History History of appendectomy History of cholecystectomy History of right knee surgery History of shoulder surgery Bilateral Family History Family History Grandparent Cerebrovascular accident Father Family history of dementia Acute myocardial infarction [place]
[2023-12-20] MEDS: LIDO 1%/EPINEPHRINE 1:100,000 20 ML VIAL 50 ML INFILTRATE (09:46)
--- NOTE | 2023-12-20 09:57 | W.PM.PROC2 ---
Procedure Note - Detailed Date of Procedure 12/20/23 Pre-op Diagnosis left knee medial meniscal tear Post-op Diagnosis Same Procedure Performed LEFT knee arthroscopy with partial meniscetomy Surgeon Jesús Samayoa MD Anesthesia General Description of Procedure Patient brought to operating room # 8. An anesthetic was administered. The knee was steriley prepped and draped in the usual manner. Standard portals were used. Superior medial portal was used for the outflow cannula, inferior lateral portal was used for the scope, inferior medial portal was used for the instruments. Arthroscopy was performed, the patellar femoral joint degenerative changes. The medial compartment showed a complex tear. The lateral compartment showed fraying. The ACL was intact. Using baskets and bartolome the meniscal tear was trimmed back to a stable base so the nothing further could be pulled into the joint. Any loose or delaminated fragments were gently trimmed to a stable base. At this point the instruments were withdrawn, sutures placed and patient left the operating room in satisfactory condition. Estimated Blood Loss 20 Drains No Packing No Pathology None sent Complications No immediate complications Condition Stable Disposition PACU [facility] Billing Surgery - Charge Forward: Surgery Billing (Arthroscopy. Partial Menisectomy [id number])
[2023-12-20 10:16] LABS: Glucose Point of Care 122 mg/dl (65-105)
[2023-12-20] MEDS: oxyCODONE HCL (*CRX) 5 MG TAB IR PO (11:17)
== END 2023-12-20 11:50 | disposition home or self-care (01) ==
PROVIDERS: PCP Family Medicine; Visit Provider Orthopaedic Surgery
PROC: (CPT 29870; principal; 2023-12-20 10:30)
DX: S83.232A Complex tear of medial meniscus, current injury, left knee, initial encounter (principal); M17.12 Unilateral primary osteoarthritis, left knee; M94.262 Chondromalacia, left knee; I10 Essential (primary) hypertension; E11.65 Type 2 diabetes mellitus with hyperglycemia; E78.2 Mixed hyperlipidemia; D64.9 Anemia, unspecified; F90.9 Attention-deficit hyperactivity disorder, unspecified type; F41.9 Anxiety disorder, unspecified; R35.0 Frequency of micturition; K22.70 Barrett's esophagus without dysplasia; G89.29 Other chronic pain; M25.562 Pain in left knee; M25.561 Pain in right knee; G47.33 Obstructive sleep apnea (adult) (pediatric); E66.9 Obesity, unspecified; Z68.38 Body mass index [BMI] 38.0-38.9, adult; Z79.51 Long term (current) use of inhaled steroids; Z79.84 Long term (current) use of oral hypoglycemic drugs; Z79.85 Long-term (current) use of injectable non-insulin antidiabetic drugs; Z99.89 Dependence on other enabling machines and devices; Z98.890 Other specified postprocedural states; Z90.49 Acquired absence of other specified parts of digestive tract; Z82.49 Family history of ischemic heart disease and other diseases of the circulatory system; X50.0XXA Overexertion from strenuous movement or load, initial encounter
CPT/HCPCS: 29881; 36415; 80048; 82948; 93005; A9270; J0690; J1100; J1885; J2250; J2405; J2704; J3010; J7120

== ENCOUNTER 2024-06-03 12:10 | Emergency (ER) | payer OTHER, SELFPAY ==
--- NOTE | ~2024-06-03 | XR_ITS ---
EXAMINATION: XR knee RT min 4V DATE: 06/03/2024 14:31 INDICATION: Right knee pain. TECHNIQUE: 4 views of right knee were obtained. COMPARISON: None. FINDINGS: Bone alignment is normal. No fracture. There is mild tricompartmental osteoarthritis. There is a small knee joint effusion. IMPRESSION: 1. Mild right knee osteoarthritis. 2. Small right knee joint effusion. Reviewed, dictated and finalized at location A.
[2024-06-03 12:15] VITALS: BP 141/81; PULSE 92; RESP 20; TEMP 36.6; O2SAT 98
--- NOTE | 2024-06-03 15:26 | ED.LOWEXIN ---
HPI - Extremity Injury (Lower) General Chief Complaint: Extremity Injury, Lower Stated Complaint: RIGHT KNEE PAIN Time Seen by Provider: 06/03/24 14:59 History of Present Illness HPI Narrative: 58-year-old male presents to the emergency department his for 1 week of right knee pain. Patient states he went to sleep last Wednesday night without issues and woke up Wednesday morning with knee pain. Denies known injury or trauma. States it hurts especially when he twists his knee and applies pressure. He has been using a walker. He has been taking ibuprofen for pain. No fever or systemic signs of illness. He does endorse a history of pain to this knee several years ago and states he underwent a arthroscopic surgery at a hospital in [place] with improvement. He is unsure of the facility that did this procedure and is unsure what the procedure was for. he follows with Dr. Samayoa now. Related Data Allergies Allergy/AdvReac Type Severity Reaction Status Date / Time mold Allergy Mild Other Verified 06/03/24 12:30 pollen extracts Allergy Unknown Unknown Verified 06/03/24 12:30 Review of Systems Review of Systems: All systems reviewed & are unremarkable except as noted in HPI and below PMFSH Past Medical History Medical History Acute bronchitis Acute pain of left knee X-ray of the left knee revealed decreased medial joint space 03/25/2022. ADHD Adhesive capsulitis of left shoulder Anemia Anxiety Back pain Barretts esophagus Benign essential hypertension Bilateral chronic knee pain BMI 34.0-34.9,adult BMI 37.0-37.9, adult BMI 38.0-38.9,adult BMI 39.0-39.9,adult Chest pain COVID-19 virus detected Elevated liver enzymes liver enzymes normal 04/11/2022 with GGT 19, AST 20, ALT 30. AST 23, ALT 30 on 12/08/2022. Encounter for prostate cancer screening PSA 2.7 on 04/11/2022. PSA 1.6 on 06/12/2023. Encounter for screening for other viral diseases Encounter for wellness examination in adult Hemoglobin A1c less than 7.0% 01/18/21 A1C = 6.1 History of Dixon's esophagus Left hand pain Medical non-compliance Mixed hyperlipidemia Total cholesterol 167, triglycerides 115, HDL 33 and LDL 113 on 04/11/2022. Cholesterol 149, triglycerides 131, HDL 29, LDL 96 on 12/08/2022. Cholesterol 196, triglycerides 744, HDL 25, LDL 60 on 06/12/2023. Noncompliance Obesity (BMI 30-39.9) Obesity (BMI 35.0-39.9 without comorbidity) Obstructive sleep apnea on CPAP CPAP with nasal mass Pneumonia Rib pain on right side Right foot pain Sepsis Severe obesity (BMI >= 40) Shortness of breath Type 2 diabetes mellitus with hyperglycemia fasting glucose 393 with hemoglobin A1c 11.6 With urine microalbumin ratio of 59 on 06/12/2023. Type 2 diabetes mellitus without complication, without long-term current use of insulin Fasting glucose 114 with hemoglobin A1c 7.1 With urine microalbumin ratio of 25 on 04/11/2022. Glucose 149 with hemoglobin A1c 7.3 on 12/08/2022. Urinary frequency Viral syndrome Surgical History Surgical History History of appendectomy History of cholecystectomy History of left knee surgery 12/20/23- left knee scope History of right knee surgery History of shoulder surgery Bilateral Family History Family History Grandparent Cerebrovascular accident Father Family history of dementia Acute myocardial infarction Mother No problems noted. Social History Social History Social History: Mr. Reid lives at home with his and his 2 adult children. 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 He would like to be a full code and designates his Melonie ([phone]) as his surrogate decision maker. Smoking status: Never smoker Alcohol intake: current Alcohol use details: RARE Substance use:
[2024-06-03] MEDS: HYDROcodone/acetaminophen (*CRX) 5-325 MG TABLET 1 TAB PO (15:34)
== END 2024-06-03 16:10 | disposition home or self-care (01) ==
PROVIDERS: Emergency Provider Physician Assistant; PCP Family Medicine
DX: M25.561 Pain in right knee (principal); E78.2 Mixed hyperlipidemia; E11.9 Type 2 diabetes mellitus without complications; I10 Essential (primary) hypertension
CPT/HCPCS: 73564; 99283; A9270

== ENCOUNTER 2025-05-21 01:29 | Day surgery (SDC) | payer OTHER, SELFPAY ==
[2025-05-11 11:16] VITALS: BMI 31.4
--- OUTSIDE RECORDS SUMMARY | 2025-05-21 01:33 | XMS_ITS | Continuity of Care Document ---
Author Organization [facility] Address [address] [place] [address] [place] [address] Phone Care Team Providers Care Bootmaker Hand Name Role Phone AubreyNilo leos Unavailable Unavailable Procedures Procedure Date Eye Exam, New Patient Advance Directives Directive Yes / No Effective Date File Name No Information Encounters Encounter Description Practice Location Reason(s) For Visit Diagnoses Date Provider Providers Copied on Encounter Merged with [facility], [address] [place], [place], [id number], [place] tel:[phone] [facility] No Information [address] [facility] [address], [place], [address], [place]. tel:[phone] Referring Provider: Jose Ramon Ernst MD, [address] [place] [address], [address]. tel:[phone] Family History Family Member Type Diagnosis Age At Onset No Information Payers Payer name Insurance type Covered green party ID Authoriza tion(s) Medicaid [facility] [id number] Social History Type Description Quantity Date Captured Comments Sex Male Smoking Status No Information Chief Complaint And Reason For Visit No Information Reason For Referral Reason For Referral No Information History Of Present Illness Encounter Date Complaint History Of Prese nt Illness No Information Functional Status Date Functional Assessmen t No Information Instructions Date Instruction Additional Infor mation No Information Assessments Type Assessment Date No Information Patient Care Teams Name Effective Dates (start - stop) Status Members No Information
--- OUTSIDE RECORDS SUMMARY | 2025-05-21 01:33 | XMS_ITS | Clinical Summary ---
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 Gender Identity Not on file Sexual Orientation Not on file Plan of Treatment Health Maintenance Due Date Last Done Comments Hepatitis C Virus (HCV) Screening 1967 TdaP Immunization 1967 Hepatitis B Immunization (1 of 3 - 19+ 3-dose series) 1986 Cologuard 2012 Colonoscopy 2012 Colorectal Cancer Screening 2012 Immunochemical Fecal Occult Blood 2012 Pneumococcal Immunization (5 0+ years) (1 of 1 - PCV) 2017 Zoster Immunization (1 of 2) 2017 SARS-COV-2 Immunization (1 - season) 2024 Influenza Immunization (#1) 2025 Respiratory Syncytial Virus (RSV) Immunization (Adult) (1 - 1-dose 75+ series) 2042 Human Papillomavirus (HPV) Immunization Aged Out No longer eligible b ased on patient's age to complete this topic Meningococcal Immunization (ACWY) Aged Out No longer eligible based on patient's age to complete this topic Rotavirus Immunization Aged Out No lo nger eligible based on patient's age to complete this topic
[2025-05-21 12:56] VITALS: BP 165/98; PULSE 58; RESP 20; TEMP 36.6; O2SAT 100; BMI 32.5
--- NOTE | 2025-05-21 13:03 | WPDANESEPPF ---
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 Patient Data Age: 59 Gender: M Height: 1.8 m Weight: 105.8 kg Last Vital Signs Temp 36.6 C 05/21/25 12:56 Pulse 58 L 05/21/25 12:56 Resp 20 05/21/25 12:56 BP 165/98 H 05/21/25 12:56 Pulse Ox 100 05/21/25 12:56 O2 Del Method Room Air 05/21/25 12:56 Allergies Allergy/AdvReac Type Severity Reaction Status Date / Time mold Allergy Mild Other Verified 05/21/25 12:54 pollen extracts Allergy Unknown Unknown Verified 05/21/25 12:54 Home Medications ?Medication ?Instructions ?Recorded ?Confirmed ?Type albuterol sulfate 90 mcg/actuation 2 puff inhalation Q4H PRN 04/12/23 05/11/25 Rx aerosol inhaler (ProAir HFA) shortness of breath or wheezing #8.5 grams lansoprazole 30 mg capsule,delayed 30 mg PO DAILY #90 caps 04/05/24 05/21/25 Rx release amlodipine 5 mg tablet (Norvasc) 5 mg PO DAILY #30 tabs 12/18/24 05/21/25 Rx lisinopril 40 mg tablet 40 mg PO DAILY #30 tabs 12/18/24 05/21/25 Rx metformin 500 mg tablet,extended 1,000 mg (2 x 500 mg) PO DAILY #60 03/27/25 05/21/25 Rx release 24 hr tabs dextroamphetamine-amphetamine ER 20 mg PO DAILY #30 caps 04/23/25 05/21/25 Rx 20 mg 24hr capsule,extend release (Adderall XR) Patient hx anesthesia problems: post op nausea/vomiting Family hx anesthesia problems: none Results Review: All pre-operative results and documents have been reviewed as part of the pre-operative evaluation. [facility] Past Medical History Medical History BMI 32.0-32.9,adult Adult situational stress disorder BMI 36.0-36.9,adult BMI 39.0-39.9,adult Acute bronchitis Left hand pain BMI 38.0-38.9,adult Obesity (BMI 30-39.9) BMI 37.0-37.9, adult Obesity (BMI 35.0-39.9 without comorbidity) Acute pain of left knee X-ray of the left knee revealed decreased medial joint space 03/25/2022. Bilateral chronic knee pain Shortness of breath Adhesive capsulitis of left shoulder Hemoglobin A1c less than 7.0% 01/18/21 A1C = 6.1 Encounter for screening for other viral diseases BMI 34.0-34.9,adult Rib pain on right side Obstructive sleep apnea on CPAP CPAP with nasal mask. Hemoglobin 14.9 on 04/07/2025. Anemia Elevated liver enzymes liver enzymes normal 04/11/2022 with GGT 19, AST 20, ALT 30. AST 23, ALT 30 on 12/08/2022. AST 26, ALT 30 on 10/28/2024. Encounter for prostate cancer screening PSA 2.7 on 04/11/2022. PSA 1.6 on 06/12/2023. PSA 2.0 on 10/28/2024. PSA 1.5 on 04/07/2025. Encounter for wellness examination in adult Anxiety Sepsis Pneumonia COVID-19 virus detected ADHD Medical non-compliance History of Dixon's esophagus Urinary frequency Type 2 diabetes mellitus with hyperglycemia fasting glucose 393 with hemoglobin A1c 11.6 With urine microalbumin ratio of 59 on 06/12/2023. Glucose 146 with hemoglobin A1c 7.7, urine microalbumin ratio of 29 with GFR 96 on 10/28/2024. Fasting glucose 133 with hemoglobin A1c 6.5 and GFR 98 on 03/24/2025. Fasting glucose 121 with hemoglobin A1c 6.3 and GFR 100 on 04/07/2025. Severe obesity (BMI >= 40) Chest pain Barretts esophagus Mixed hyperlipidemia Total cholesterol 167, triglycerides 115, HDL 33 and LDL 113 on 04/11/2022. Cholesterol 149, triglycerides 131, HDL 29, LDL 96 on 12/08/2022. Cholesterol 196, triglycerides 744, HDL 25, LDL 60 on 06/12/2023. Cholesterol 143, triglycerides 100, HDL 30, LDL 94 on 10/28/2024.Total cholesterol 185, triglycerides 74, HDL 36, LDL 135 on 04/07/2025. Benign essential hypertension Noncompliance Back pain Viral syndrome Type 2 diabetes mellitus without complication, without long-term current use of insulin Fasting glucose 114 with hemoglobin A1c 7.1 With urine microalbumin ratio of 25 on 04/11/2022. Glucose 149 with hemoglobin A1c 7.3 on 12/08/2022. Right foot pain Surgical History Surgical History History of left knee surgery 12/20/23- left knee scope History of right knee surgery History of shoulder surgery Bilateral History of cholecystectomy History of appendectomy Family History Family History Grandparent Cerebrovascular accident Father Family history of dementia Acute myocardial infarction Mother No problems noted. Social History Social History Social History: Mr. Reid lives at home with his and his 2 adult children. 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 He would like to be a full code and designates his Melonie ([phone]) as his surrogate decision maker. 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 Informed Consent: The patient's anesthetic plan and its attendant risks and benefits were discussed with the patient/family/POA. Questions were solicited and answers provided to the satisfaction of the patient/family/POA.
[2025-05-21] MEDS: LACTATED RINGERS 1,000 ML 150 ML IV CONT (13:13)
[2025-05-21 13:15] VITALS: BP 155/85
--- NOTE | 2025-05-21 13:47 | P.HP_ITS ---
History of Present Illness History of Present Illness Consent: Risks, benefits, and alternatives have been discussed and questions answered. Patient agrees to proceed with procedure. Chief complaint: German's esophagus without dysplasia Narrative: Rich Reid is a 59 year old male with gerd controlled with ppi, had egd more than 15 years ago, he was told that had German's Review of Systems Review of Systems: All systems reviewed & are unremarkable except as noted in HPI and below PMFSH Past Medical History Medical History BMI 32.0-32.9,adult Adult situational stress disorder BMI 36.0-36.9,adult BMI 39.0-39.9,adult Acute bronchitis Left hand pain BMI 38.0-38.9,adult Obesity (BMI 30-39.9) BMI 37.0-37.9, adult Obesity (BMI 35.0-39.9 without comorbidity) Acute pain of left knee X-ray of the left knee revealed decreased medial joint space 03/25/2022. Bilateral chronic knee pain Shortness of breath Adhesive capsulitis of left shoulder Hemoglobin A1c less than 7.0% 01/18/21 A1C = 6.1 Encounter for screening for other viral diseases BMI 34.0-34.9,adult Rib pain on right side Obstructive sleep apnea on CPAP CPAP with nasal mask. Hemoglobin 14.9 on 04/07/2025. Anemia Elevated liver enzymes liver enzymes normal 04/11/2022 with GGT 19, AST 20, ALT 30. AST 23, ALT 30 on 12/08/2022. AST 26, ALT 30 on 10/28/2024. Encounter for prostate cancer screening PSA 2.7 on 04/11/2022. PSA 1.6 on 06/12/2023. PSA 2.0 on 10/28/2024. PSA 1.5 on 04/07/2025. Encounter for wellness examination in adult Anxiety Sepsis Pneumonia COVID-19 virus detected ADHD Medical non-compliance History of German's esophagus Urinary frequency Type 2 diabetes mellitus with hyperglycemia fasting glucose 393 with hemoglobin A1c 11.6 With urine microalbumin ratio of 59 on 06/12/2023. Glucose 146 with hemoglobin A1c 7.7, urine microalbumin ratio of 29 with GFR 96 on 10/28/2024. Fasting glucose 133 with hemoglobin A1c 6.5 and GFR 98 on 03/24/2025. Fasting glucose 121 with hemoglobin A1c 6.3 and GFR 100 on 04/07/2025. Severe obesity (BMI >= 40) Chest pain Barretts esophagus Mixed hyperlipidemia Total cholesterol 167, triglycerides 115, HDL 33 and LDL 113 on 04/11/2022. Cholesterol 149, triglycerides 131, HDL 29, LDL 96 on 12/08/2022. Cholesterol 196, triglycerides 744, HDL 25, LDL 60 on 06/12/2023. Cholesterol 143, triglycerides 100, HDL 30, LDL 94 on 10/28/2024.Total cholesterol 185, triglycerides 74, HDL 36, LDL 135 on 04/07/2025. Benign essential hypertension Noncompliance Back pain Viral syndrome Type 2 diabetes mellitus without complication, without long-term current use of insulin Fasting glucose 114 with hemoglobin A1c 7.1 With urine microalbumin ratio of 25 on 04/11/2022. Glucose 149 with hemoglobin A1c 7.3 on 12/08/2022. Right foot pain Surgical History Surgical History History of left knee surgery 12/20/23- left knee scope History of right knee surgery History of shoulder surgery Bilateral History of cholecystectomy History of appendectomy Family History Family History Grandparent Cerebrovascular accident Father Family history of dementia Acute myocardial infarction Mother No problems noted. Social History Social History Social History: Mr. Reid lives at home with his and his 2 adult children. 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 He would like to be a full code and designates his Melonie ([phone]) as his surrogate decision maker. 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 Gender identity (if verbalized by the patient): Male Spiritual care concerns: No Meds Home Medications and Allergies Home Medications ?Medication ?Instructions ?Recorded ?Confirmed ?Type albuterol sulfate 90 mcg/actuation 2 puff inhalation Q4H PRN 04/12/23 05/11/25 Rx aerosol inhaler (ProAir HFA) shortness of breath or wheezing #8.5 grams lansoprazole 30 mg capsule,delayed 30 mg PO DAILY #90 caps 04/05/24 05/21/25 Rx release amlodipine 5 mg tablet (Norvasc) 5 mg PO DAILY #30 tabs 12/18/24 05/21/25 Rx lisinopril 40 mg tablet 40 mg PO DAILY #30 tabs 12/18/24 05/21/25 Rx metformin 500 mg tablet,extended 1,000 mg (2 x 500 mg) PO DAILY #60 03/27/25 05/21/25 Rx release 24 hr tabs dextroamphetamine-amphetamine ER 20 mg PO DAILY #30 caps 04/23/25 05/21/25 Rx 20 mg 24hr capsule,extend release (Adderall XR) Allergies Allergy/AdvReac Type Severity Reaction Status Date / Time mold Allergy Mild Other Verified 05/21/25 12:54 pollen extracts Allergy Unknown Unknown Verified 05/21/25 12:54 Vital Signs Vital Signs - 24 hr 05/21/25 12:56 05/21/25 13:15 Temperature 97.8 F Pulse Rate 58 L Respiratory Rate 20 Blood Pressure 165/98 H 155/85 H Pulse Oximetry 100 Oxygen Delivery Room Air Exam Const: General: comfortable and no acute distress HENMT: Face/Nose/Sinus: Normal nares present Eyes: General: appearance normal, both eyes and all related structures Neck: Neck: no JVD Resp: Auscultation: clear to auscultation bilaterally Cardio: Rate: regular rate Rhythm: regular rhythm GI: Inspection: non-distended GI Palp: Yes Soft to palpation Skin: General skin exam: normal color Neuro: General: gait normal Speech: normal speech Extrem: General: normal to inspection Psych: Mental Status: mental status grossly normal Assessment and Plan Assessment and plan (1) GERD (gastroesophageal reflux disease): Qualifiers: Esophagitis presence: esophagitis presence not specified Qualified Code(s): K21.9 - Gastro-esophageal reflux disease without esophagitis Code(s): K21.9 - Gastro-esophageal reflux disease without esophagitis Status: Acute Assessment and Plan: egd, will assess if german's
--- NOTE | 2025-05-21 13:54 | S_PTH ---
PATIENT: Rich Reid LOC: [facility]#:[id number] AGE/SX: 59/M ROOM: RE05/21/[address]: Kayden Lees MD : 1965 BED: DIS: 05/21/2025 SPEC #: [id number] RECD: 05/22/25 08:28 STATUS: JAN REQ #: [id number] LAURA: 05/21/25 13:[address]: Kayden Lees DEPT: [facility] Surgical RECD BY: Marine Wilson ENTERED: 05/22/25 08:29 SP TYPE: Surgical OTHR DR: Jose Ramon Ernst MD Tissues: A - Gastric Biopsy B - Esophageal Biopsy Procedures: Hematoxylin and Eosin Stain Gross and Microscopic Level 4
[2025-05-21 13:55] VITALS: BP 132/59; PULSE 60; RESP 23; O2SAT 96
[2025-05-21 14:05] VITALS: BP 131/58; PULSE 55; RESP 21; O2SAT 96
[2025-05-21 14:15] VITALS: BP 146/75; PULSE 58; RESP 17; O2SAT 98
== END 2025-05-21 14:30 | disposition home or self-care (01) ==
PROVIDERS: PCP Family Medicine; Referring Provider Family Medicine; Visit Provider Internal Medicine Gastroenterology
PROC: 0DJ08ZZ Inspection of Upper Intestinal Tract, Via Natural or Artificial Opening Endoscopic (ICD-10-PCS; CPT 43239; principal; 2025-05-21 13:45)
DX: K21.9 Gastro-esophageal reflux disease without esophagitis (principal); K29.50 Unspecified chronic gastritis without bleeding; D64.9 Anemia, unspecified; E11.65 Type 2 diabetes mellitus with hyperglycemia; E78.2 Mixed hyperlipidemia; G47.33 Obstructive sleep apnea (adult) (pediatric); F41.9 Anxiety disorder, unspecified; R35.0 Frequency of micturition; G89.29 Other chronic pain; M25.562 Pain in left knee; M25.561 Pain in right knee; F90.9 Attention-deficit hyperactivity disorder, unspecified type; Z79.51 Long term (current) use of inhaled steroids; Z79.84 Long term (current) use of oral hypoglycemic drugs; E66.9 Obesity, unspecified; Z68.32 Body mass index [BMI] 32.0-32.9, adult; Z99.89 Dependence on other enabling machines and devices; Z98.890 Other specified postprocedural states; Z90.49 Acquired absence of other specified parts of digestive tract; Z87.19 Personal history of other diseases of the digestive system; Z82.49 Family history of ischemic heart disease and other diseases of the circulatory system
CPT/HCPCS: 43239; 82948; 88305; J2003; J2704; J7120